=== PATIENT | male | born 1975 | race Caucasian/White ===

== ENCOUNTER 2023-06-05 13:52 | Outpatient (REF) | payer MEDICAID, SELFPAY ==
[2023-06-05 17:23] LABS: MANUAL DIFF FLAG NO
[2023-06-05 17:31] LABS: Basophils Percent Auto 0.8 % (0-2); Eosinophils Absolute Auto 0.2 X10*3/uL (0.0-0.4); Eosinophils Percent Auto 3.8 % (0-4); Hematocrit 44.8 % (42.0-52.0); Hemoglobin 14.7 g/dl (14.0-18.0); Imm Gran Abs Auto 0.01 X10*3/uL (0.00-0.03); Imm Gran Pct Auto 0.2 % (0.0-0.4); Lymphocytes Absolute Auto 1.8 X10*3/uL (1.2-4.9); Lymphocytes Percent Auto 35.4 % (20-40); Mean Corpuscular HGB Conc 32.8 g/dl (31.0-36.0); Mean Corpuscular Hemoglobin 30.5 pg (27.0-33.0); Mean Corpuscular Volume 92.9 fL (80.0-98.0); Mean Platelet Volume 9.7 fL (9.4-12.4); Monocytes Absolute Auto 0.5 X10*3/uL (0.1-1.2); Monocytes Percent Auto 9.5 % (2-11); Neutrophils Absolute Auto 2.6 x10*3/uL (2.0-8.3); Neutrophils Percent Auto 50.3 % (45-73); Platelet Count 273 X10*3/uL (160-400); Red Blood Count 4.82 X10*6/uL (4.60-5.80); Red Cell Distribution Width 11.9 % (11.0-16.0); White Blood Count 5.1 X10*3/uL (4.8-10.8)
[2023-06-05 17:43] LABS: Alanine Aminotransferase 23 U/L (0-40); Albumin Level 4.3 g/dL (3.5-5.0); Alkaline Phosphatase 77 U/L (39-117); Anion Gap 15 (12-20); Aspartate Amino Transferase 20 U/L (5-37); Bilirubin Total 0.6 mg/dL (0.0-1.0); Blood Urea Nitrogen 18 mg/dL (9-16); Calcium 9.2 mg/dL (8.4-10.2); Carbon Dioxide 22 mmol/L (22-29); Chloride 105 mmol/L (96-108); Cholesterol 219 mg/dL (<200); Estimated Glomerular Filt Rate > 60; Glucose Random 103 mg/dL (60-115); HDL Cholesterol 52 mg/dL (>40); LDL Cholesterol Calculated 147 mg/dL (<100); Potassium 3.6 mmol/L (3.3-5.1); Sodium 138 mmol/L (135-145); Total Protein 7.2 g/dL (6.5-8.0); Triglycerides 102 mg/dL (<150)
[2023-06-05 17:55] LABS: Prostate Specific Antigen 1.01 ng/mL (<0.05-4.0)
[2023-06-05 17:58] LABS: TSH reflex Free T4 0.94 uIU/mL (0.32-4.0)
[2023-06-06 05:31] LABS: Estimated Average Glucose 103 mg/dL; Hemoglobin A1c % 5.2 % (<6.0)
== END 2023-06-05 13:53 | disposition home or self-care (01) ==
LOC: HO.CHCLDS 13:52
PROVIDERS: Visit Provider Family Medicine
DX: E66.09 Other obesity due to excess calories (principal); Z68.31 Body mass index [BMI] 31.0-31.9, adult
CPT/HCPCS: 36415; 80053; 80061; 83036; 84153; 84443; 85025

== ENCOUNTER 2023-11-26 09:49 | Outpatient (AMB) | payer MEDICAID, SELFPAY ==
--- NOTE | 2023-11-26 09:53 | MHC.OFFVIS ---
Intake Vital Signs 11/26/23 10:00 Height 5 ft 10 in Weight 230 lb BMI 33.0 BP 130/74 Blood Pressure Location Lt brachial Position Sitting Pulse 65 Intake Visit Reasons: Colonoscopy Screening Intake Note: Patient new consult for 1st pre colonoscopy screening. Patient cc: acid reflex with burning sensation, hemorrhoids, and also patient is having a umbilical lump/hernia ?? denies any other GI issues. Densitometer Reader Required: No Accompanied by: Self / Same As Patient Allergies codeine Allergy (Intermediate, Verified 11/26/23 09:53) Unknown Medication List - Last Reconciled 11/26/23 by Brianne Rincon PA-C No Known Home Meds HPI HPI Comments History of Present Illness Details A 48 y/o male with alternating stool pattern due to his work schedule- he is referred for index screening colonoscopy. He works nights-has difficulty -with his diet-feels it very demanding No cardiac or respiratory issues No N/V/D abdominal pain- fever or chills PFSH Family History (Updated 11/26/23 @ 10:25 by Brianne Rincon PA-C) Unknown No family history of colorectal cancer Social History Household Members: Family Alcohol intake: current Alcohol intake frequency: 3 or more drinks per day Patient Tobacco Use Status: Never used Tobacco Review of Systems Const All systems reviewed & are unremarkable except as noted in HPI and below Card Denies chest pain and Denies dyspnea Resp Denies dyspnea GI Denies abdominal pain, Denies change in bowel habits, Denies nausea and Denies vomiting Psych Reports abnormal sleep pattern Physical Exam Vital Signs: Last Vital Signs Pulse 65 11/26/23 10:00 BP 130/74 11/26/23 10:00 BMI result Body Mass Index 33.0 Const General: cooperative, healthy appearing and comfortable Orientation/consciousness: patient oriented x3 Limitations: no limitations Resp Effort & Inspection: normal respiratory effort and able to speak in complete sentences Auscultation: clear to auscultation bilaterally, no rales, no rhonchi and no wheezes Cardio Rate: regular rate Rhythm: regular rhythm Heart sounds: S1 normal heart sound present and S2 normal heart sound present GI Palpation (GI): Soft to palpation and nontender Auscultation: normal bowel sounds Skin General skin exam: no rashes or lesions noted Neuro General: patient oriented x3 Extrem General: Yes full ROM Psych Appearance: well kempt Mental Status: mental status grossly normal Speech and movement: Clear speech present Affect: Labile affect present Thought process: Normal thought process present Thought content: Normal thought content present Insight: Fair insight present (Psych) Assessment & Plan Assessment & Plan (1) Encounter for screening colonoscopy: Comment: disc procedure- rare risks-need escort- prep Code(s): Z12.11 - Encounter for screening for malignant neoplasm of colon Plan index screening colonoscopy MG prep Orders: Orders Colonoscopy - GI Use Only Today Z12.11 - Encounter for screening for malignant neoplasm of colon Medications: New bisacodyl (Dulcolax (bisacodyl)) Day before procedure @ 12 noon Take 4 tablets by mouth followed by large glass of water 20 mg (4 x 5 mg) PO ONCE PRN 4 tabs 0RF colonoscopy prep 1 day Z12.11 - Encounter for screening for malignant neoplasm of colon polyethylene glycol 3350 (Miralax) Take as directed by mouth the day before your procedure. 238 grams PO ONCE PRN 238 grams 0RF laxative effect 1 day Patient Instructions: index screening colonoscopy MG prep, reviewed- lit given Maintain high-fiber diet Call with concerns Coding Level of Care Code New Pt Level 3 (97768) Diagnoses Encounter for screening colonoscopy Z12.11 Time Spent (min) 30
[2023-11-26 10:00] VITALS: BP 130/74; PULSE 65; BMI 33.0
== END 2023-11-26 11:08 | disposition home or self-care (01) ==
PROVIDERS: PCP Family Medicine; Visit Provider Physician Assistant
DX: Z12.11 Encounter for screening for malignant neoplasm of colon (principal); Z01.818 Encounter for other preprocedural examination
CPT/HCPCS: 99203

== ENCOUNTER → 2023-11-26 09:49 | Outpatient (BNVA) | payer MEDICAID, SELFPAY | PROVIDERS: PCP Family Medicine; Visit Provider Physician Assistant | DX: Z12.11 Encounter for screening for malignant neoplasm of colon (principal) | CPT/HCPCS: 99212 ==

== ENCOUNTER 2024-04-01 17:46 | Outpatient (REF) | payer MEDICAID, SELFPAY | END 2024-04-01 17:47 | disposition home or self-care (01) | LOC: HO.HHCLNP 17:46 | PROVIDERS: Visit Provider Internal Medicine | DX: L98.491 Non-pressure chronic ulcer of skin of other sites limited to breakdown of skin (principal) | CPT/HCPCS: 36415; 87255 ==

== ENCOUNTER 2024-04-30 09:26 | Day surgery (SDC) | payer OTHER, SELFPAY ==
[2024-04-30 10:08] VITALS: BMI 31.8
[2024-04-30] MEDS: Lactated Ringers 1,000 ML 80 ML IVCONT (10:17)
[2024-04-30 10:27] VITALS: BP 154/90; PULSE 66; RESP 18; TEMP 36.7; O2SAT 96
--- NOTE | 2024-04-30 10:37 | P.CONAN_ITS ---
HPI - Anesthesia Eval Consult details Narrative: colon screen [facility] Active Problems Active Problems: All Active Problems Encounter for screening colonoscopy (Acute) Past Medical History Medical History No pertinent past medical history Family History Family History Unknown No family history of colorectal cancer Family history of problems with anesthesia: No Surgical History Surgical History Hx of wisdom tooth extraction History of lithotripsy History of Problems with Anesthesia: No Social History Social History Household Members: Family Alcohol intake: current Alcohol intake frequency: 3 or more drinks per day Patient Tobacco Use Status: Never used Tobacco Advance Directives: No Advance Directives Information Provided: Yes Meds Allergies Allergy/AdvReac Type Severity Reaction Status Date / Time codeine Allergy Intermediate Unknown Verified 04/30/24 09:58 Active Medications: Current Medications Lactated Ringer's (Lr) 1,000 mls @ 80 mls/hr IVCONT .[id number] WILLIAN Last Admin: 04/30/24 10:17 Dose: 80 mls/hr Home Medications ?Medication ?Instructions ?Recorded ?Confirmed ?Last Taken ?Type No Known Home Meds 04/30/24 04/30/24 Unknown History Exam Height,Weight and Vital Signs: Height 5 ft 10 in Weight 100.607 kg Last Vital Signs Temp 98.1 F 04/30/24 10:27 Pulse 66 04/30/24 10:27 Resp 18 04/30/24 10:27 BP 154/90 H 04/30/24 10:27 Pulse Ox 96 04/30/24 10:27 O2 Del Method Room Air 04/30/24 10:27 Airway Mallampati Class: II TM Dist: >3cm Neck ROM: Full Heart: rrr Lungs: cta Assessment and Plan Assessment Anesthesia Assessment: Anesthesia Plan Discussed Final Anesthetic Review Family History of Problems with Anesthesia: No History of Problems with Anesthesia: No NPO: Yes ASA Class: I Final Preanesthetic Review: No Changes in Pt Med Stat, Meds/Allgs Chart Reviewed, Consent Obtained/Reviewed and Anes Risks/Benef Reviewed Patient Risk: Low Procedure Risk: Low Anesthetic Plan Anesthetic Plan: MAC: Disposition: Standard PACU
--- NOTE | 2024-04-30 10:37 | MHC.SHP ---
Pre-Procedural Eval Section A - 24 Hr Update-Section A only Date of Service: 04/30/24 The patient is an INPATIENT: No The patient has been examined within 24 hours of the surgical procedure. The History & Physical has been completed within 30 days and I have reviewed it.: No Section B - Complete if H&P > 30 days Chief Complaint: Colon cancer screening Relevant Family History (Specify if Yes): No Relevant Social History: None Present Medications: see Short Stay Collaborative assessment Medical History: No relevant PMH History of Previous Operations: Relevant previous surgery/procedure and date(s) (wisdom tooth) Allergies: Allergies Allergy/AdvReac Type Severity Reaction Status Date / Time codeine Allergy Intermediate Unknown Verified 04/30/24 09:58 Review of Systems Sugical H&P ROS: Negative: Constitution, Cardiovascular, Respiratory and Gastrointestinal Exam Surgical H&P Exam: Normal: Heart, Normal: Lungs, Normal: Extremities and Normal: Abdomen Plan Diagnosis/Plan: Unchanged I have reviewed the history and physical and performed a pertinent physical examination on my patient. No changes have occurred unless specified. Time Spent With Patient Time: Total time managing care of this patient today ____ minutes.
--- NOTE | 2024-04-30 11:00 | HO.ANESPROP2 ---
[facility] Active Problems Active Problems: All Active Problems Encounter for screening colonoscopy (Acute) Past Medical History Medical History No pertinent past medical history Family History Family History Unknown No family history of colorectal cancer Family history of problems with anesthesia: No Surgical History Surgical History Hx of wisdom tooth extraction History of lithotripsy History of Problems with Anesthesia: No Social History Social History Household Members: Family Are you a primary managed care provider to a significant other at home: No Do you presently have visiting nurse or other home services: No Alcohol intake: current Alcohol intake frequency: 3 or more drinks per day Patient Tobacco Use Status: Never used Tobacco Have you been hit, kicked, punched, or otherwise hurt by someone within the past year? If so, by whom?: No Are you DNR?: No Advance Directives: No Advance Directives Information Provided: Yes Recently lost weight without trying: No Nutrition Risks: No Nutritional Risk Meds Allergies Allergy/AdvReac Type Severity Reaction Status Date / Time codeine Allergy Intermediate Unknown Verified 04/30/24 09:58 Active Medications: Current Medications Lactated Ringer's (Lr) 1,000 mls @ 80 mls/hr IVCONT .[id number] WILLIAN Last Admin: 04/30/24 10:17 Dose: 80 mls/hr Home Medications ?Medication ?Instructions ?Recorded ?Confirmed ?Last Taken ?Type No Known Home Meds 04/30/24 04/30/24 Unknown History Exam Height,Weight and Vital Signs: Height 5 ft 10 in Weight 100.607 kg Last Vital Signs Temp 98.1 F 04/30/24 10:27 Pulse 66 04/30/24 10:27 Resp 18 04/30/24 10:27 BP 154/90 H 04/30/24 10:27 Pulse Ox 96 04/30/24 10:27 O2 Del Method Room Air 04/30/24 10:27 Airway Mallampati Class: II TM Dist: >3cm Neck ROM: Full Assessment and Plan Assessment Anesthesia Assessment: Anesthesia Plan Discussed and Chart Reviewed Final Anesthetic Review Family History of Problems with Anesthesia: No History of Problems with Anesthesia: No NPO: Yes ASA Class: II Final Preanesthetic Review: No Changes in Pt Med Stat, Meds/Allgs Chart Reviewed, Consent Obtained/Reviewed and Anes Risks/Benef Reviewed Patient Risk: Low Procedure Risk: Low Anesthetic Plan Disposition: Standard PACU
--- NOTE | 2024-04-30 11:36 | HO.OPN-COLON ---
Colonoscopy Operative Note Operative Note Date of Service: 04/30/24 Narrative: COLONOSCOPY TILL CECUM WITH BIOPSIES Pre-op diagnosis: Colon cancer screening (First colonoscopy), IBS. Post-op diagnosis:? Diverticulosis Endoscopist:? Gisel Lemon MD Anesthesia:?MAC Consent: Indications for the procedure and potential complications of bleeding, perforation, reaction to medications and missed diagnosis were discussed with the patient and informed consent was obtained. Instrument: Olympus PCF H 190 L variable stiffness pediatric colonoscope Monitoring: Vital signs and clinical assessment, intermittent blood pressure monitoring, continuous EKG monitoring, Pulse oximetry and Carbon Dioxide monitoring were done throughout the procedure. Please see anesthesia flowsheet. Colon withdrawl time was 14 minutes. Procedure: The patient was placed in the left lateral decubitis position and pre-procedure medications were administered. After a digital rectal examination of the ano-rectum, the video colonoscope was inserted into the rectum and advanced through the colon to the cecum. The colonoscope was slowly withdrawn in a retrograde panoramic fashion and the colon mucosa was carefully examined including a retroflexed view of the rectum. Findings and interventions are described below. Procedure Difficulty: without difficulty Findings: Terminal Ileum: Not evaluated Cecum: Normal Ascending Colon: Normal Transverse Colon: Normal Descending Colon: Moderate diverticulosis Sigmoid Colon: Moderate diverticulosis Rectum: Normal Ano-rectum: Normal Colon preparation: Excellent, after some irrigation. [place] Bowel Preparation Scale Right colon; 3 Transverse colon: 3 Left colon; 3 (0 = Unprepared colon segment with mucosa not seen due to solid stool that cannot be cleared. 1 = Portion of mucosa of the colon segment seen, but other areas of the colon segment not well seen due to staining, residual stool and/or opaque liquid. 2 = Minor amount of residual staining, small fragments of stool and/or opaque liquid, but mucosa of colon segment seen well. 3 = Entire mucosa of colon segment seen well with no residual staining, small fragments of stool or opaque liquid) Impression and Post Procedure Diagnosis: Colonoscopy Findings: No polyps were detected Random biopsies were obtained from the right and left colon to check for microscopic colitis. Moderate diverticulosis seen in the left colon Plan: I will send a letter with biopsy results. Pt has a FU appointment on 07/29/24 with ISAURA Horvath, Repeat Colonoscopy in 10 year if colon biopsies are normal. Above findings were reviewed with the patient and relevant handouts were given and the discharge area.
[2024-04-30 11:40] VITALS: BP 140/91; PULSE 70; RESP 17; TEMP 36.8; O2SAT 98
[2024-04-30 11:55] VITALS: BP 135/90; PULSE 62; RESP 18; TEMP 36.9; O2SAT 99
== END 2024-04-30 12:30 | disposition home or self-care (01) ==
PROVIDERS: PCP Family Medicine; Visit Provider Internal Medicine Gastroenterology
PROC: 0DJD8ZZ Inspection of Lower Intestinal Tract, Via Natural or Artificial Opening Endoscopic (ICD-10-PCS; CPT 45378; principal; 2024-04-30 11:00)
DX: Z12.11 Encounter for screening for malignant neoplasm of colon (principal); K57.30 Diverticulosis of large intestine without perforation or abscess without bleeding; K58.9 Irritable bowel syndrome, unspecified; K21.9 Gastro-esophageal reflux disease without esophagitis; Z88.5 Allergy status to narcotic agent; Z87.442 Personal history of urinary calculi
CPT/HCPCS: 45380; 88305; J2704

== ENCOUNTER → 2024-04-30 09:26 | Outpatient (BNV) | payer OTHER, SELFPAY | PROVIDERS: PCP Family Medicine; Visit Provider Internal Medicine Gastroenterology | DX: Z12.11 Encounter for screening for malignant neoplasm of colon (principal); K57.90 Diverticulosis of intestine, part unspecified, without perforation or abscess without bleeding | CPT/HCPCS: 45380 ==

== ENCOUNTER 2024-09-21 11:32 | Outpatient (REF) | payer OTHER, SELFPAY ==
--- NOTE | ~2024-09-21 | XR_ITS ---
EXAMINATION: XR CHEST CLINICAL INFORMATION: chornic cough COMPARISON: None available. TECHNIQUE: 2 views of the chest were obtained. FINDINGS: No significant abnormality is noted involving the heart, lungs, mediastinum, bony thorax or soft tissues. XR/XR chest 2V IMPRESSION: Unremarkable chest exam. Electronically signed by: Joseph García MD 09/21/2024 12:06 PM [facility]
--- OUTSIDE RECORDS SUMMARY | 2024-09-21 12:48 | XMS_ITS | Encounter Summary ---
Author Organization [employer] Address [address] [place] [address] Care Team Providers Care Adjunct Professor Of Law Name Role Phone Kathleen Bustamante MD Primary Care Provider [phone] Encounter Details Date Type Department Care Team ([facility] Contact Info) Description 08/30/2024 1:00 PM EST Office Visit [facility] [address], [place] [phone] Kathleen Bustamante MD [address] [place], [place] [id number] Primary hypertension (Primary Dx); Diverticulosis; Screening due; Dietary counseling; Exercise counseling; Class 1 obesity with serious comorbidity and body mass index (BMI) of 34.0 to 34.9 in adult, unspecified obesity type; Insomnia, unspecified type Social History Tobacco Use Types Packs/Day Years Used Date Smoking Tobacco: Never Passive Smoke Exposure: Never Smokeless Tobacco: Never Alcohol Use Standard Drinks/Week Comments Never 0 (1 standard drink = 0.6 oz pur e alcohol) Depression Answer Date Recorded Patient Health Questionnaire-9 Score 8 05/22/2023 Housing Stability Answer Date Recorded What is your housing situation today? I have mandyrk lawson 07/02/[address] you li ve. Do you have problems with any of the following? None of the above 07/02/2023 Food Insecurity Answer Date Recorded Within the past 12 months, y ou worried that your food would run out before you got money to buy more: Never True 07/02/2023 Within the past 12 months,th e food you bought just didn't last and you didn't have enough money to get more: Never True 03/2023 Transportation Answer Date Recorded In the past 12 months, has l ack of transportation kept you from medical appts, meetings, work or from getting things needed for daily living? No 07/02/2023 Utilities Answer Date Recorded In the past 12 months, has t he electric, gas, oil or water company threatened to shut off services in your home? No 07/02/2023 Depression Answer Date Recorded Patient Health Questionnaire-2 Score 2 05/22/2023 Sex and Gender Information Value Date Recorded Sex Assigned at Male 04/02/2023 8:32 AM EDT Legal Sex Male 3:15 PM EST Gender Identity Male 04/02/2023 8:32 AM EDT Sexual Orientation Don't know 04/02/2023 8: 32 AM EDT documented as of this encounter Last Filed Vital Signs Vital Sign Reading Time Taken Comments Blood Pressure 148/88 08/30/2024 1:17 PM EST Pulse 76 08/30/2024 1:10 PM EST Temperature 36.3 ??C (97.4 ??F) 08/30/2024 1:10 PM ES T Respiratory Rate 20 08/30/2024 1:10 PM EST Oxygen Saturation 98% 08/30/2024 1:10 PM EST Inhaled Oxygen Concentration - - Weight 107 kg (236 lb 12.8 oz) 08/30/2024 1:10 P M EST Height 175.3 cm (5' 9 ) 08/30/2024 1:10 PM EST Body Mass Index 34.97 08/30/2024 1:10 PM EST documented in this encounter Patient Instructions * Patient Instructions* Kathleen Bustamante MD - 08/30/2024 1:00 PM EST Counseling Center List [facility] Intake: [phone] Crisis: [phone] [facility]: [phone] [facility] Address: [address] [place], [place] [facility] Address: [address] [place] [address] [facility] Address: [address] [place], [place] [facility] Address: [address] [place] [address], Building [address] [place] [address] [facility] Address: [address], [place], [place] [facility] Address: [address] [place], [place] [facility] Address: [address] [place], [place] [facility] Address: [address] [place], [place] Service Net Address: [address] [place] [address] documented in this encounter Progress Notes * Kathleen Bustamante MD - 08/30/2024 1:00 PM EST Subjective Patient ID: Tenzin Davis is a 49 y.o. male who presents for HTN. - Pt completed colonoscopy, due in 10 years. HTN: Pt has been stressed with reduction in hours at work. Pt does have BP home kit but does not monitorat home. Pt states he has Hx of being pre-hypertensive and has Family Hx of HTN. Sleep Disturbance: Pt is having difficulty sleeping. He has no issue falling asleep but has difficulty staying asleep.He admits drinking alcohol helps with sleep but increased acid reflux Sx. He has also had increasedanxiety. Concerns: Pt complains of abdominal pain and gas that happens frequently. Pt admits stressors and eating habits are contributing to Sx. Pt is also feeling arthritic pain particularly after working. He states joint pain is throughout the body. Review of Systems Constitutional: Negative for appetite change, fatigue and fever. HENT: Negative for congestion, postnasal drip and rhinorrhea. Eyes: Negative for discharge and redness. Respiratory: Negative for apnea, cough, chest tightness and shortness of breath. Cardiovascular: Negative for chest pain. Gastrointestinal: Positive for abdominal pain. Gas Endocrine: Negative for polyphagia. Genitourinary: Negative for difficulty urinating, dysuria and urgency. Musculoskeletal: Positive for arthralgias. Neurological: Negative for dizziness, light-headedness, numbness and headaches. Hematological: Negative for adenopathy. Does not bruise/bleed easily. Psychiatric/Behavioral: The patient is nervous/anxious. Objective Visit Vitals BP (!) 148/88 (BP Location: Left arm, Patient Position: Sitting, BP Cuff Size: Large adult) Pulse 76 Temp 97.4 ??F (36.3 ??C) (Oral) Resp 20 Ht 5' 9 (1.753 m) Wt 236 lb 12.8 oz (107 kg) SpO2 98% BMI 34.97 kg/m?? Smoking Status Never BSA 2.28 m?? Physical Exam Constitutional: General: He is not in acute distress. Appearance: He is not ill-appearing. HENT: Head: Normocephalic and atraumatic. Nose: No congestion. Pulmonary: Effort: Pulmonary effort is normal. No respiratory distress. Breath sounds: Normal breath sounds. Musculoskeletal: Cervical back: Normal range of motion. Neurological: General: No focal deficit present. Mental Status: He is alert. Psychiatric: Mood and Affect: Mood normal. Assessment/Plan Problem List Items Addressed This Visit Nervous Insomnia Issues with sleep maintenance, will start on trazodone. Relevant Medications Doxepin (Sinequan) 10 MG Capsule Circulatory Primary hypertension - Primary BP is uncontrolled. Recheck is 148/88. Begin Amlodipine 5 MG and follow up in 3 weeks with nurse for recheck. Monitor BP at home. Ordering lab work for further evaluation. Relevant Medications Amlodipine (Norvasc) 5 MG tablet Relevant Orders CBC auto differential Comprehensive Metabolic Panel Lipid Panel, Standard TSH W/Reflex to FT4 Digestive Diverticulosis Other Visit Diagnoses Screening due Relevant Orders Hepatitis C Antibody with Reflex to HCV, RNA, Quantitative, Real-Time PCR HIV-1/2 Antigen and Antibodies, Fourth Generation, with Reflexes Dietary counseling Exercise counseling Class 1 obesity with serious comorbidity and body mass index (BMI) of 34.0 to 34.9 in adult, unspecified obesity type Advised to follow up with and gave information for local providers. Scribe Attestation: By signing my name below, Shayy Hickman, attest that this documentation has been prepared under the direction of Kathleen Bustamante MD. documented in this encounter Miscellaneous Notes * Assessment & Plan Note - Shayy Hickman - 08/30/2024 1:42 PM ESTAssociated Problem(s): Primary hypertension BP is uncontrolled. Recheck is 148/88. Begin Amlodipine 5 MG and follow up in 3 weeks with nurse for recheck. Monitor BP at home. Ordering lab work for further evaluation. Relevant Medications Amlodipine (Norvasc) 5 MG tablet * Assessment & Plan Note - Kathleen Bustamante MD - 08/30/2024 1:22 PM EST Associated Problem(s): Insomnia Issues with sleep maintenance, will start on trazodone. Relevant Medications Doxepin (Sinequan) 10 MG Capsule documented in this encounter Plan of Treatment Scheduled Orders Name Type Priority Associated Diagnoses Orde r Schedule Hepatitis C Antibody with Reflex to HCV, RNA, Quantitative, Real-Time PCR Lab Routine Screening due Expected: 08/30/2024 (Approximate), Expires: 08/30/2025 HIV-1/2 Antigen and Antibodies, Fourth Generation, with Reflexes Lab Routine Screening due Expected: 08/30/2024 (Approximate), Expires: 08/30/2025 CBC auto differential Lab Routine Primary hypertension Expected: 08/30/2024 (Approximate), Expires: 08/30/2025 Comprehensive Metabolic Panel Lab Routine Primary hypertension Expected: 08/30/2024 (Approximate), Expires: 08/30/2025 Lipid Panel, Standard Lab Routine Primary hypertension Expected: 08/30/2024 (Approximate), Expires: 08/30/2025 TSH W/Reflex to FT4 Lab Routine Primary hypertension Expected: 08/30/2024 (Approximate), Expires: 08/30/2025 documented as of this encounter Visit Diagnoses Diagnosis Primary hypertension- Primary Unspecified essential hypertension Diverticulosis Diverticulosis of colon (without mention of hemorrhage) Screening due Dietary counseling Dietary surveillance and counseling Exercise counseling Class 1 obesity with serious comorbidity and body mass index (BMI) of 34.0 to 34.9 in adult, unspecified obesity type Insomnia, unspecified type documented in this encounter Additional Health Concerns Assessment Noted Time PHQ-9 Depression Total Score: 8 05/22/20 23 11:01 AM EDT documented as of this encounter Care Teams Adjunct Professor Of Law Relationship Specialty Start Date End Date Kathleen Bustamante MD [address] [place] [address] PCP - General Family Medicine 05/22/23 documented as of this encounter
--- OUTSIDE RECORDS SUMMARY | 2024-09-21 12:48 | XMS_ITS | Encounter Summary ---
Author Organization [employer] Address [address] [facility] [address] [address] 7t [place] [address] Care Team Providers Care Reading Teacher Name Role Phone Kathleen Bustamante MD Primary Care Provider [phone] Encounter Details Date Type Department Care Team ([facility] st Contact Info) Description 09/21/2024 11:20 AM EST Office Visit [facility] [address] [place] [address] [phone] Rosa M Rincon MD [address] [place] [address] [phone] Persistent cough for 3 weeks or longer (Primary Dx); Primary hypertension Social History Tobacco Use Types Packs/Day Years Used Date Smoking Tobacco: Never Passive Smoke Exposure: Never Smokeless Tobacco: Never Alcohol Use Standard Drinks/Week Comments Never 0 (1 standard drink = 0.6 oz pur e alcohol) Depression Answer Date Recorded Patient Health Questionnaire-9 Score 8 05/22/2023 Housing Stability Answer Date Recorded What is your housing situation today? I have mandy lawson 07/02/[address] you [...] Sign Reading Time Taken Comments Blood Pressure 160/100 09/21/2024 11:26 AM EST Pulse - - Temperature - - Respiratory Rate - - Oxygen Saturation - - Inhaled Oxygen Concentration - - Weight - - Height - - Body Mass Index - - documented in this encounter Progress Notes * Jeri Amado - 09/21/2024 11:20 AM EST Subjective History was provided by the patient. Tenzin Davis is a 49 y.o. male who presents for evaluation of follow up on a URI. Seen in [facility] [place] on 09/07/24 initially for cough. Swabs negative, Son had tested positive for COVID. Seen again in [facility] [place] on 09/14/24(7 days ago) for cough and exposure to COVID by his children. Tested negatvie for COVID, but positive for Flu B. Prescribed azithromycin, ipratropium, Tessalon Perles and tamiflu. Pt reports since then symptoms include cough with clear sputum, but reports it has been improving. Says he just needs another note for work. Pt reports he did not complete his abx because after he took the first two doses he got nauseous and vomited. Associated negative symptoms include fever, shortness of breath, congestion, sore throat, and chest pain. BP initially elevated in clinic. Pt reported he dd not take his medications this morning. Objective Vitals: 09/21/24 1126 BP: (!) 160/100 BP Location: Left arm Patient Position: Sitting BP Cuff Size: Large adult Physical Exam Constitutional: Appearance: Normal appearance. Cardiovascular: Rate and Rhythm: Normal rate and regular rhythm. Heart sounds: Normal heart sounds. Pulmonary: Effort: Pulmonary effort is normal. No respiratory distress. Breath sounds: Normal breath sounds. No decreased breath sounds or wheezing. Comments: Coughing intermittently. Musculoskeletal: Cervical back: Normal range of motion and neck supple. Lymphadenopathy: Cervical: No cervical adenopathy. Neurological: Mental Status: He is oriented to person, place, and time. No visits with results within 2 Day(s) from this visit. Latest known visit with results is: Office Visit on 09/14/2024 Component Date Value Ref Range Status Influenza A 09/14/2024 Negative Negative, Indeterminate Final Influenza B 09/14/2024 Positive (A) Negative, Indeterminate Final Rapid COVID Ag 09/14/2024 Negative Final Problem List Items Addressed This Visit Persistent cough for 3 weeks or longer - Primary Initial symptoms with main concern of cough started around 09/07/24, had negative swabs at the time.Second evaluation for persisting/worsening symptoms on 09/14/24 where pt tested positive for influenza. Today pt resents for prolonged/lingering cough with clear sputum, but notes otherwise symptoms have improved/resolved. -ordered CXR 09/21/24 Relevant Orders XR Chest 2 Views Primary hypertension BP slightly elevated, not controlled. Strongly encouraged patient to take his medications. -No evidence of acute disease process. Suspect prolonged cough after recent influenza. Symptoms mild and improving. -Ordered XR. -ER precautions discussed. -Seek medical attention for worsening symptoms. I, Jeri Fischer, am serving as a scribe to document services personally performed by Dr. Ervin, based on the patient's response to questions by provider and providers statements to me. documented in this encounter Miscellaneous Notes * Assessment & Plan Note - Jeri Fischer - 09/21/2024 11:21 AM ESTAssociated Problem(s): Primary hypertension BP slightly elevated, not controlled. Strongly encouraged patient to take his medications. * Assessment & Plan Note - Jeri Fischer - 09/21/2024 11:18 AM ESTAssociated Problem(s): Persistent cough for 3 weeks or longer Initial symptoms with main concern of cough started around 09/07/24, had negative swabs at the time.Second evaluation for persisting/worsening symptoms on 09/14/24 where pt tested positive for influenza. Today pt resents for prolonged/lingering cough with clear sputum, but notes otherwise symptoms have improved/resolved. -ordered CXR 09/21/24 documented in this encounter Plan of Treatment Not on file documented as of this encounter Procedures Procedure Name Priority Date/Time Associated Diagnosis Comments XR CHEST 2 VIEWS Routine 09/21/2024 11:3 3 AM EST Persistent cough for 3 weeks or longer documented in this encounter Results * XR Chest 2 Views (09/21/2024 11:33 AM EST) Anatomical Region Laterality Modality Chest Radiographic Malinda ging 09/21/2024 11:3 3 AM EST Narrative 09/21/2024 12:08 PM EST ?[facility] ?[address] ?[place] [address] ?XRay Report ? Signed ? Patient: Tenzin Davis ?MR#: [id number] ?? [id number] ? : 1975 ?Acct:[id number] ? Age/Sex: 49 / M ?ADM Date: 09/21/24 ? Loc: HO.HHCX ? Attending Dr: Rosa M Rincon MD ? Ordering Physician: Rosa M Rincon MD ?? Date of Service: 09/21/24 ?? Procedure(s): XR chest 2V ?? Accession Number(s): [id number] ? cc: Rosa M Rincon MD ? EXAMINATION: ?? XR CHEST ? CLINICAL INFORMATION: ?? chornic cough ? COMPARISON: ?? None available. ? TECHNIQUE: ?? 2 views of the chest were obtained. ? FINDINGS: ?? No significant abnormality is noted involving the heart, lungs, ?? mediastinum, bony thorax or soft tissues. ? XR/XR chest 2V ?? IMPRESSION: ?? Unremarkable chest exam. ? Electronically signed by: ??Joseph García MD ??09/21/2024 12:06 PM EST RP ? Dictated By: ?Joseph García MD ? Signed By: ?<Electronically signed by Joseph García MD in OV> ?09/21/24 1206 ? DD/ 1133 ? TD/TT: 09/21/24 1155 ? Shore Worker: MSM ? Procedure Note Dontamra, Image - 09/21/2024 [facility] [address] [place] [address] XRay Report Signed Patient: Becky Davis#: [id number] : 1975Acct:[id number] Age/Sex: 49 / MADM Date: 09/21/24 Loc: HO.HHCX Attending Dr: Rosa M Rincon MD Ordering Physician: Rsoa M Rincon MD Date of Service: 09/21/24 Procedure(s): XR chest 2V Accession Number(s): [id number] cc: Rosa M Rincon MD EXAMINATION: XR CHEST CLINICAL INFORMATION: chornic cough COMPARISON: None available. TECHNIQUE: 2 views of the chest were obtained. FINDINGS: No significant abnormality is noted involving the heart, lungs, mediastinum, bony thorax or soft tissues. XR/XR chest 2V IMPRESSION: Unremarkable chest exam. Electronically signed by: Joseph García MD 09/21/2024 12:06 PM [facility] Dictated By: Joseph García MD Signed By: <Electronically signed by Joseph García MD in OV> 09/21/24 1206 DD/ 1133 TD/TT: 09/21/24 1155 Shore Worker: MSM Rosa M Rincon MD IMG XR PROCEDURES Final Re sult documented in this encounter Visit Diagnoses Diagnosis Persistent cough for 3 weeks or longer- Primary Primary hypertension Unspecified essential hypertension documented in this encounter Additional Health Concerns Assessment Noted Time PHQ-9 Depression Total Score: 8 05/22/20 23 11:01 AM EDT documented as of this encounter Care Teams Reading Teacher Relationship Specialty Start Date End Date Kathleen Bustamante MD [address] [place] [address] PCP - General Family Medicine 05/22/23 documented as of this encounter
--- OUTSIDE RECORDS SUMMARY | 2024-09-21 12:48 | XMS_ITS | Encounter Summary ---
Author Organization [employer] Address [address] [facility] 7[address] [place] [address] Care Team Providers Care Mallet And Die Cutter Name Role Phone Kathleen Bustamante MD Primary Care Provider [phone] Encounter Details Date Type Department Care Team (Latest Contact Info) Description 08/30/2024 Travel Social History Tobacco Use Types Packs/Day Years [...] AM EDT documented as of this encounter Plan of Treatment Not on file documented as of this encounter Visit Diagnoses Not on filedocumented in this encounter Additional Health Concerns Assessment Noted Time PHQ-9 Depression Total Score: 8 05/22/20 11:01 AM EDT documented as of this encounter Care Teams Mallet And Die Cutter Relationship Specialty Start Date End Date Kathleen Bustamante MD [address] [place] [address] PCP - General Family Medicine 05/22/23 documented as of this encounter
--- OUTSIDE RECORDS SUMMARY | 2024-09-21 12:48 | XMS_ITS | Encounter Summary ---
Author Organization [employer] Address [address] [facility] [address]t [place] [address] Care Team Providers Care Transmission Superintendent Name Role Phone Kathleen Bustamante MD Primary Care Provider [phone] Reason for Visit * Reason Comments Cough Encounter Details Date Type Department Care Team ([facility] st Contact Info) Description 09/14/2024 9:40 AM EST Office Visit [facility] [address] [place] [address] [phone] Rosa M Rincon MD [address] [place], [place] [phone] Cough, unspecified type (Primary Dx); Influenza B Social History Tobacco Use Types Packs/Day Years Used Date Smoking Tobacco: Never Passive Smoke Exposure: Never Smokeless Tobacco: Never Tobacco Cessation:Counseling Given: Not Answered Alcohol Use Standard Drinks/Week Comments Never 0 [...] Sign Reading Time Taken Comments Blood Pressure 146/95 09/14/2024 9:00 AM EST Pulse 89 09/14/2024 9:00 AM EST Temperature 37.3 ??C (99.1 ??F) 09/14/2024 9:00 AM ES T Respiratory Rate 19 09/14/2024 9:00 AM EST Oxygen Saturation 94% 09/14/2024 9:00 AM EST Inhaled Oxygen Concentration - - Weight 104 kg (229 lb 3.2 oz) 09/14/2024 9:00 AM EST Height 175.3 cm (5' 9 ) 09/14/2024 9:00 AM EST Body Mass Index 33.85 09/14/2024 9:00 AM EST documented in this encounter Progress Notes * Izzy Medrano MA - 09/14/2024 9:40 AM EST Subjective History was provided by the patient. Tenzin Davis is a 49 y.o. male who presents for evaluation of symptoms of a URI. Pttested negative for Covid but was exposed to Covid by children. Pt tested positive for Flu A. Symptoms include cough, runny nose, and congestion. Onset of symptoms was 2 weeks ago, gradually worsening since that time. Associated negative symptoms include fever. Evaluation to date: none. Treatment to date: none Objective Vitals: 09/14/24 0900 BP: (!) 146/95 BP Location: Left arm Patient Position: Sitting BP Cuff Size: Large adult Pulse: 89 Resp: 19 Temp: 99.1 ??F (37.3 ??C) TempSrc: Oral SpO2: 94% Weight: 229 lb 3.2 oz (104 kg) Height: 5' 9 (1.753 m) Physical Exam Constitutional: Appearance: Normal appearance. Cardiovascular: Rate and Rhythm: Normal rate and regular rhythm. Heart sounds: Normal heart sounds. Pulmonary: Effort: Pulmonary effort is normal. Breath sounds: Normal breath sounds. Abdominal: General: Abdomen is flat. Palpations: Abdomen is soft. Tenderness: There is no abdominal tenderness. Musculoskeletal: Cervical back: Normal range of motion and neck supple. Lymphadenopathy: Cervical: No cervical adenopathy. Skin: General: Skin is warm and dry. Neurological: Mental Status: Mental status is at baseline. Psychiatric: Behavior: Behavior normal. Office Visit on 09/14/2024 Component Date Value Ref Range Status Influenza A 09/14/2024 Negative Negative, Indeterminate Final Influenza B 09/14/2024 Positive (A) Negative, Indeterminate Final Rapid COVID Ag 09/14/2024 Negative Final Problem List Items Addressed This Visit Cough - Primary - Prescribed azithromycin (Zithromax) 250 MG tablet 09/14/24 - Prescribed ipratropium (Atrovent) 0.06 % nasal spray 09/14/24 - Prescribed benzonatate (Tessalon Perles) 100 MG capsule 09/14/24 - ER precautions discussed. 09/14/24 - Seek medical attention for worsening symptoms. 09/14/24 Relevant Medications azithromycin (Zithromax) 250 MG tablet ipratropium (Atrovent) 0.06 % nasal spray benzonatate (Tessalon Perles) 100 MG capsule Other Relevant Orders Influenza A (ID NOW Rapid Molecular) (Completed) Influenza B (ID NOW Rapid Molecular) (Completed) POCT Rapid COVID Ag (Completed) Influenza B - Prescribed oseltamivir (Tamiflu) 75 MG capsule 09/14/24 - ER precautions discussed. 09/14/24 - Seek medical attention for worsening symptoms. 09/14/24 Relevant Medications oseltamivir (Tamiflu) 75 MG capsule -No evidence of respiratory distress. Symptoms mild. -No evidence of dehydration. -Supportive care advised. -Isolation recommendations discussed. -ER precautions discussed. -Seek medical attention for worsening symptoms. Izzy Crowley, am serving as a scribe to document services personally performed by Dr. Rosa M Rincon, based on the patient's response to questions by provider and providers statements to me. documented in this encounter Miscellaneous Notes * Assessment & Plan Note - Izzy Medrano MA - 09/14/2024 9:56 AM ESTAssociated Problem(s): Cough - Prescribed azithromycin (Zithromax) 250 MG tablet 09/14/24 - Prescribed ipratropium (Atrovent) 0.06 % nasal spray 09/14/24 - Prescribed benzonatate (Tessalon Perles) 100 MG capsule 09/14/24 - ER precautions discussed. 09/14/24 - Seek medical attention for worsening symptoms. 09/14/24 * Assessment & Plan Note - Izzy Medrano MA - 09/14/2024 9:56 AM ESTAssociated Problem(s): Influenza B - Prescribed oseltamivir (Tamiflu) 75 MG capsule 09/14/24 - ER precautions discussed. 09/14/24 - Seek medical attention for worsening symptoms. 09/14/24 documented in this encounter Plan of Treatment Not on file documented as of this encounter Procedures Procedure Name Priority Date/Time Associated Diagnosis Comments POCT INFLUENZA B (ID NOW RAPID MOLECULAR) Routine 09/14/2024 9:49 AM EST Cough, unspecified type POCT INFLUENZA A (ID NOW RAPID MOLECULAR) Routine 09/14/2024 9:49 AM EST Cough, unspecified type POCT RAPID COVID ANTIGEN Routine 09/14/2024 9:49 AM EST Cough, unspecified type documented in this encounter Results * POCT Rapid COVID Ag (09/14/2024 9:49 AM EST) Rapid COVID Ag Negative Swab 09/14/2024 9:49 AM EST Rosa M Rincon MD POINT OF CARE TEST ENTER/E DIT ORDERABLES Final Result * (ABNORMAL) Influenza B (ID NOW Rapid Molecular) (09/14/2024 9:49 AM EST) Influenza B Positive( A) Negative, Indeterminate [facility] Swab 09/14/2024 9:49 AM EST Rosa M Rincon MD POINT OF CARE TEST ENTER/E DIT ORDERABLES Final Result Performing Organization Address [facility]/ZIP Co de Phone Number [facility] [address] [place] [phone] * Influenza A (ID NOW Rapid Molecular) (09/14/2024 9:49 AM EST) Influenza A Negative Negative, Indeterminate [facility] Swab 09/14/2024 9:49 AM EST Rosa M Rincon MD POINT OF CARE TEST ENTER/E DIT ORDERABLES Final Result Performing Organization Address [facility] Co de Phone Number [facility] [address] [place] [phone] documented in this encounter Visit Diagnoses Diagnosis Cough, unspecified type- Primary Influenza B Influenza with other respiratory manifestations documented in this encounter Additional Health Concerns Assessment Noted Time PHQ-9 Depression Total Score: 8 05/22/20 23 11:01 AM EDT documented as of this encounter Care Teams Transmission Superintendent Relationship Specialty Start Date End Date Kathleen Bustamante MD [address] [place] [address] PCP - General Family Medicine 05/22/23 documented as of this encounter
--- OUTSIDE RECORDS SUMMARY | 2024-09-21 12:48 | XMS_ITS | Clinical Summary ---
Author Organization [employer] [facility] Address [address] [place] [address] Care Team Providers Care Interlocker Name Role Phone Crow Armijo MD Primary Care Provider [phone] Allergies Active Allergy Reactions Criticality Noted Date Comments Cat Dander 08/10/2024 Codeine 08/10/2024 Dog Dander 08/10/2024 House Dust 08/10/2024 Medications Medication Sig Dispensed Refills Start Date End Date Status diclofenac (VOLTAREN) 1 % topical gel Apply 1 Dose topically 3 times daily. - Apply externally Active glucosamine/chondro ingram A/C/Mn (GLUCOSAMINE-CHONDRO IT-VIT C-MN ORAL) Take by mouth. 1500 Complx Cap Active Immunizations Name Administration Dates Next Due Tdap Tetanus diptheria acell ular pertussis (Boostrix; Adacel) 7yo and older 03/03/2019 Family History Medical History Relation Name Comments No Known Problems Father Other: many medical issues, no details Mother Relation Name Status Comments Father Mother Alive Social History Tobacco Use Types Packs/Day Years Used Date Smoking Tobacco: Former Smokeless Tobacco: Never Alcohol Use Standard Drinks/Week Comments Yes 0 (1 standard drink = 0.6 oz pur e alcohol) Sex and Gender Information Value Date Recorded Sex Assigned at Not on file Gender Identity Not on file Sexual Orientation Not on file Obstetrics History Last Filed Vital Signs Vital Sign Reading Time Taken Comments Blood Pressure 126/68 05/29/2022 8:52 AM EDT Pulse 68 05/29/2022 8:52 AM EDT Temperature - - Respiratory Rate - - Oxygen Saturation - - Inhaled Oxygen Concentration - - Weight 101 kg (221 lb 9.6 oz) 05/29/2022 8:52 AM EDT Height 177.8 cm (5' 10 ) 05/29/2022 8:52 AM EDT Body Mass Index 31.8 05/29/2022 8:52 AM EDT Plan of Treatment Health Maintenance Due Date Last Done Comments Hepatitis B Vaccines (1 of 3 - 19+ 3-dose series) 1994 Colorectal Cancer Screening: Colonoscopy 02/05/2020 Social Influencers of Health Screening 02/05/2020 COVID-19 Vaccine (1 - 2023-2 5 season) 2024 Influenza Vaccine (#1) 2024 Depression Screening 05/22/2024 05/22/2023 Cholesterol Screening (Lipid Panel) 10/01/2024 10/01/2019 DTaP,Tdap,and Td Vaccines (2 - Td or Tdap) 03/03/2029 03/03/2019 HIV Screening Completed 03/29/2016 Hepatitis C Screening Completed 03/29/2016 HIB Vaccines Aged Out No longer eligi ble based on patient's age to complete this topic HPV Vaccines Aged Out No longer eligi ble based on patient's age to complete this topic Hepatitis A Vaccines Aged Out No long er eligible based on patient's age to complete this topic IPV Vaccines Aged Out No longer eligi ble based on patient's age to complete this topic MMR Vaccines Aged Out No longer eligi ble based on patient's age to complete this topic Meningococcal ACWY Vaccine Aged Out N o longer eligible based on patient's age to complete this topic Pneumococcal Vaccine: Pediat rics (0 to 5 Years) and At-Risk Patients (6 to 64 Years) Aged Out No longer eligi ble based on patient's age to complete this topic RSV Immunization Patients Un barbara 20 months Aged Out No longer eligible b ased on patient's age to complete this topic Varicella Vaccines Aged Out No longer eligible based on patient's age to complete this topic Procedures Procedure Name Priority Date/Time Associated Diagnosis Comments LIPID PANEL Routine 10/01/2019 HEPATITIS C SCREENING Routine 03/29/2016 HIV SCREENING Routine 03/29/2016 from Last 3 Months or Most Recently Relevant to Health Maintenance Results * (ABNORMAL) Lipid panel (10/01/2019) LDL/HDL Ratio 4 0 - 4 Triglycerides 109 0 - 150 mg/dL Cholesterol 213(A) 0 - 200 mg/dL HDL 59 40 mg/dL LDL Cholesterol 133(A) 0 - 100 mg/dL Blood Venous blood specimen / Unknown Historical Provider LAB BLOOD ORDERAB LES * HIV Screening (03/29/2016) Pathologist [facility] HIV Screening Abstracted Historical Provider MD WONG MAINTENMARITZA E * Hepatitis C Screening (03/29/2016) Pathologist [facility] Hepatitis C Screening Abstracted Historical Provider MD MARVIN PATTERSON E from Last 3 Months or Most Recently Relevant to Health Maintenance Care Teams Interlocker Relationship Specialty Start Date End Date Crow Armijo MD [address] [place] [address] PCP - General Internal Medicine 02/24/19
--- OUTSIDE RECORDS SUMMARY | 2024-09-21 12:48 | XMS_ITS | Encounter Summary ---
Author Organization [employer] Address [address] [facility] 7t [place] [address] Care Team Providers Care Insecticide Expert Name Role Phone Kathleen Bustamante MD Primary Care Provider [phone] Encounter Details Date Type Department Care Team (Latest Contact Info) Description 09/07/2024 Travel Social History Tobacco Use Types Packs/Day [...] documented as of this encounter Care Teams Insecticide Expert Relationship Specialty Start Date End Date Kathleen Bustamante MD [address] [place] [address] PCP - General Family Medicine 05/22/23 documented as of this encounter
--- OUTSIDE RECORDS SUMMARY | 2024-09-21 12:48 | XMS_ITS | Clinical Summary ---
Author Organization [employer] Address [address] [facility] 7t [place] [address] Care Team Providers Care Retail Advertising Account Executive Name Role Phone Kathleen Bustamante MD Primary Care Provider [phone] Allergies Active Allergy Reactions Criticality Noted Date Comments Cat Dander 03/03/2019 Codeine 04/02/2023 Dog Epithelium 03/03/2019 Dust Mite Extract 08/10/2024 Medications glucosamine-cho ndroitin 500-400 MG tablet Take 1 tablet by mouth 3 times daily. Active terbinafine (LamISIL AT) 1 % creamIndication s:Tinea pedis of both feet Apply topically 2 times daily. 42 g 3 Active triamcinolone (Kenalog) 0.5 % ointment Apply topically 2 times daily. 60 g 3 Active Diclofenac Sodium 1 % gel Apply 1 Dose topically 3 times daily. - Apply externally Active amLODIPine (Norvasc) 5 MG tablet Take 1 tablet (5 mg) by mouth Once per day. 90 tablet 1 5 Active doxepin (SINEquan) 10 MG capsule Take 1 capsule (10 mg) by mouth at bedtime. 90 capsule 1 5 Active ipratropium (Atrovent) 0.06 % nasal sprayIndication s:Cough, unspecified type 2 sprays each nostril bid prn rhinorrhea, niuean 15 mL 5 Active benzonatate (Tessalon Perles) 100 MG capsuleIndicati ons:Cough, unspecified type Take 1 capsule (100 mg) by mouth if needed in the morning, at noon, and at bedtime for cough. Do not crush or chew. 20 capsule 5 026 Active traZODone (Desyrel) 50 MG tablet Take 1 tablet (50 mg) by mouth at bedtime. 90 tablet 1 5 025 Discontinu ed(Therapy completed) azithromycin (Zithromax) 250 MG tabletIndicatio ns:Cough, unspecified type Take 2 tablets (500 mg) by mouth Once per day for 1 day, THEN 1 tablet (250 mg) Once per day for 4 days. 6 tablet 5 025 oseltamivir (Tamiflu) 75 MG capsuleIndicati ons:Influenza A Infection Take 1 capsule (75 mg) by mouth 2 times daily for 5 days. 10 capsule 5 025 Active Problems Problem Noted Date Diagnosed Date Persistent cough for 3 weeks or longer 5 Assessment & Plan (09/21/2024 11:19 AM EST): Initial symptoms with main concern of cough started around 09/07/24, had negative swabs at the time. Second evaluation for persisting/worsening symptoms on 09/14/24 where pt tested positive for influenza. Today pt resents for prolonged/lingering cough with clear sputum, but notes otherwise symptoms have improved/resolved. -ordered CXR 09/21/24 Cough 09/14/2024 Overview (09/14/2024): - Prescribed azithromycin (Zithromax) 250 MG tablet 09/14/24 - Prescribed ipratropium (Atrovent) 0.06 % nasal spray 09/14/24 - Prescribed benzonatate (Tessalon Perles) 100 MG capsule 09/14/24 - ER precautions discussed. 09/14/24 - Seek medical attention for worsening symptoms. 09/14/24 Assessment & Plan (09/14/2024 9:56 AM EST): - Prescribed azithromycin (Zithromax) 250 MG tablet 09/14/24 - Prescribed ipratropium (Atrovent) 0.06 % nasal spray 09/14/24 - Prescribed benzonatate (Tessalon Perles) 100 MG capsule 09/14/24 - ER precautions discussed. 09/14/24 - Seek medical attention for worsening symptoms. 09/14/24 Influenza B 09/14/2024 Overview (09/14/2024): - Prescribed oseltamivir (Tamiflu) 75 MG capsule 09/14/24 - ER precautions discussed. 09/14/24 - Seek medical attention for worsening symptoms. 09/14/24 Assessment & Plan (09/14/2024 9:56 AM EST): - Prescribed oseltamivir (Tamiflu) 75 MG capsule 09/14/24 - ER precautions discussed. 09/14/24 - Seek medical attention for worsening symptoms. 09/14/24 Cough in adult patient 09/07/2024 Overview (09/07/2024): Presumed Covid because son tested Positive. - Note provided for sick time from work 09/07/24 Assessment & Plan (09/07/2024 10:32 AM EST): Presumed Covid because son tested Positive. - Note provided for sick time from work 09/07/24 Diverticulosis 08/30/2024 Primary hypertension 08/30/2024 Assessment & Plan (09/21/2024 11:21 AM EST): BP slightly elevated, not controlled. Strongly encouraged patient to take his medications. Assessment & Plan (08/30/2024 1:43 PM EST): BP is uncontrolled. Recheck is 148/88. Begin Amlodipine 5 MG and follow up in 3 weeks with nurse for recheck. Monitor BP at home. Ordering lab work for further evaluation. Relevant Medications Amlodipine (Norvasc) 5 MG tablet Insomnia 08/30/2024 Assessment & Plan (08/30/2024 1:43 PM EST): Issues with sleep maintenance, will start on trazodone. Relevant Medications Doxepin (Sinequan) 10 MG Capsule Skin ulcer of nose, limited to breakdown of skin 04/01/2024 Assessment & Plan (04/01/2024 1:45 PM EDT): Symptomatology en physical examination indicative of a painful ulceration with superimposed infection Etiology ? Herpetic VS Bacterial Plan: Obtained Viral Culture to rule out HSV 1/2 Treat as Herpetic lesion with superimposed infection Valtrex 1 gram BID x 10 days Doxy 100 mg BID x 7 days I recommended patient to be tested for STIs. Pt declined he verbalized understanding of missing serious conditions. He stated he was convinced there was no risk for STIs therefore he did not want to be tested. He mentioned testing would exacerbate his anxiety. Elevated blood pressure reading 07/10/2023 Assessment & Plan (07/10/2023 2:51 PM EST): Uncontrolled: patient presented visit with an elevated blood pressure with readings of: 144/88 mmHg. Will not prescribing medication at this time, however, patient was recommended to monitor blood pressure at home at least once a day, and bring readings upon next office visit. Patient had blood pressure retaken at the time of visit with readings of: 134/88 mmHg. Class 1 obesity 05/22/2023 Assessment & Plan (07/10/2023 2:50 PM EST): Discussed calorie deficit, recommended reduction of 20-30% of maintenance calories; superintendent track referral offered. Recommended to decrease soda and sugary beverage consumption. Recommended at least 20 g per meal of protein to assist with satiety. Recommended at least 150 min/week of moderate intensity exercise. Upon visit, patient was advised to talk to Nutrionist to persue weight loss: patient accepted. For these reason, patient will be referred to Nutrition Services. Assessment & Plan (05/22/2023 11:33 AM EDT): Discussed calorie deficit, recommended reduction of 20-30% of maintenance calories; superintendent track referral offered. Recommended to decrease soda and sugary beverage consumption. Recommended at least 20 g per meal of protein to assist with satiety. Recommended at least 150 min/week of moderate intensity exercise. Resolved Problems Problem Noted Date Diagnosed Date Resolved Date Upper respiratory tract infection 07/10/2023 07/23/2023 Assessment & Plan (07/10/2023 2:50 PM EST): Patient that presented visit with complaints of upper respiratory tract infection will be prescribe Amoxicillin. Encounters Date Type Department Care Team Description 09/21/2024 11:20 AM EST Office Visit [facility] [address] [address] Rosa M Rincon MD Persistent cough for 3 weeks or longer (Primary Dx); Primary hypertension 09/14/2024 9:40 AM EST [facility] [address] [address] Rosa M Rincon MD Cough, unspecified type (Primary Dx); Influenza B 09/07/2024 9:40 AM EST [facility] [address] [address] Rosa M Rincon MD Cough in adult patient 09/07/2024 Travel 08/30/2024 1:00 PM EST Office Visit [facility] [address] [place] [address] Kathleen Bustamante MD Primary hypertension (Primary Dx); Diverticulosis; Screening due; Dietary counseling; Exercise counseling; Class 1 obesity with serious comorbidity and body mass index (BMI) of 34.0 to 34.9 in adult, unspecified obesity type; Insomnia, unspecified type 08/30/2024 Travel 08/20/2024 Patient Outreach [facility] [address] [place] [address] Kathleen Bustamante MD Pre-visit Planning (SDOH unable to reach LVM) 07/08/2024 Patient Outreach [facility] [address] [place] [address] Kathleen Bustamante MD Pre-visit Planning (SDOH unable to reach LVM) from Last 3 Months Immunizations Name Administration Dates Next Due Tdap 03/03/2019 Social History Tobacco Use Types Packs/Day Years [...] Don't know 04/02/2023 8: 32 AM EDT Last Filed Vital Signs Vital Sign Reading Time Taken Comments Blood Pressure 160/100 09/21/2024 11:26 AM EST Pulse 89 09/14/2024 9:00 AM [...] Mass Index 33.85 09/14/2024 9:00 AM EST Plan of Treatment Health Maintenance Due Date Last Done Comments CT Colonography 1975 FIT DNA/Cologuard 1975 FIT 1975 FOBT 1975 HIV Screening 1975 Sigmoidoscopy 1975 Family Planning (PISQ) 1990 Hepatitis C Screening 1993 Hepatitis B Vaccines (1 of 3 - 19+ 3-dose series) 1994 Depression Screening 05/22/2024 05/22/2023, 05/22/2023 SDOH Screening 07/02/2024 07/02/2023 Influenza Vaccine (#1) 2025 Postp oned from 04/25/2024 (Patient Refused) Zoster Vaccines (1 of 2) 2025 Alcohol/Substance Use Screening 08/30/2025 08/30/2024 COVID-19 Vaccine (1 - 2023-2 5 season) 2025 Postponed from 04/25 (Patient Refused) Tobacco Screening 09/14/2025 09/14/2024 Lipid Panel 06/05/2028 06/05/2023 DTaP/Tdap/Td Vaccines (2 - T d or Tdap) 03/03/2029 03/03/2019 Colonoscopy 04/30/2034 Colorectal Cancer Screening 04/30/2034 RSV Patients and Patients Aged 60 years or older (1 - 1-dose 75+ series) 2050 HIB Vaccines Aged Out No longer eligi [...] patient's age to complete this topic Meningococcal Vaccine Aged Out No balta barry eligible based on patient's age to complete this topic Pneumococcal Vaccine: Pediatrics (0 to 5 Years) and At-Risk Patients (6 to 64 Years) Aged Out No longer eligible b ased on patient's age to complete this topic RSV under 20 months Aged Out No longe r eligible based on patient's age to complete this topic Rotavirus Vaccines Aged Out No longer eligible based on patient's age to complete this topic Procedures Procedure Name Priority Date/Time Associated Diagnosis Comments XR CHEST 2 VIEWS Routine 09/21/2024 11:3 3 AM EST Persistent cough for 3 weeks or longer POCT RAPID COVID ANTIGEN Routine 09/14/2024 9:49 AM EST Cough, unspecified type POCT INFLUENZA B (ID NOW RAPID MOLECULAR) Routine 09/14/2024 9:49 AM EST Cough, unspecified type POCT INFLUENZA A (ID NOW RAPID MOLECULAR) Routine 09/14/2024 9:49 AM EST Cough, unspecified type POCT INFLUENZA B (ID NOW RAPID MOLECULAR) Routine 09/07/2024 10:03 AM EST Cough in adult patient POCT INFLUENZA A (ID NOW RAPID MOLECULAR) Routine 09/07/2024 10:02 AM EST Cough in adult patient POCT RAPID COVID ANTIGEN Routine 09/07/2024 9:51 AM EST Cough in adult patient LIPID PANEL, STANDARD Routine 06/05/2023 2:02 PM EDT Class 1 obesity without serious comorbidity with body mass index (BMI) of 31.0 to 31.9 in adult, unspecified obesity type from Last 3 Months or Most Recently Relevant to Health Maintenance Results * XR Chest 2 Views (09/21/2024 11:33 AM EST) Anatomical Region Laterality Modality Chest Radiographic Malinda ging 09/21/2024 11:3 3 AM EST Narrative 09/21/2024 12:08 PM EST ?[facility] ?[address] ?[place] [address] ?XRay Report ? Signed ? Patient: Charlestson,Christopher ?MR#: [id number] ?? [id number] ? : 1975 ?Acct:[id number] ? Age/Sex: 49 / M ?ADM Date: 01/28/25 ? Loc: HO.HHCX ? Attending Dr: Rosa M Rincon MD ? Ordering Physician: Rosa M Rincon MD ?? Date of Service: 09/21/24 ?? Procedure(s): XR chest 2V ?? Accession Number(s): [id number] ? cc: Rosa M Rincon MD ? [...] DD/ 1133 ? TD/TT: 09/21/24 1155 ? Lurer: MSM ? Procedure Note Magdaleno, Image - 09/21/[address] [address] XRay Report Signed Patient: Becky Davis#: [id number] : 1975Acct:[id number] Age/Sex: 49 / MADM Date: 09/21/24 Loc: HO.HHCX Attending Dr: Rosa M Rincon MD Ordering Physician: Rosa M Rincon MD Date of Service: 09/21/24 Procedure(s): XR chest 2V Accession Number(s): [id number] cc: Rosa M Rincon MD EXAMINATION: XR CHEST CLINICAL INFORMATION: chornic cough COMPARISON: None available. TECHNIQUE: 2 views of the chest were obtained. FINDINGS: No significant abnormality is noted involving the heart, lungs, mediastinum, bony thorax or soft tissues. XR/XR chest 2V IMPRESSION: Unremarkable chest exam. Electronically signed by: Joseph García MD 09/21/2024 12:06 PM [facility] Dictated By: Joseph García MD Signed By: <Electronically signed by Joseph García MD in OV> 09/21/24 1206 DD/ 1133 TD/TT: 09/21/24 1155 Lurer: MSM us Rosa M Rincon MD IMG XR PROCEDURES Final Re sult * (ABNORMAL) Influenza B (ID NOW Rapid Molecular) (09/14/2024 9:49 AM EST) Only the most recent of2 resultswithin the time period is included. Pathologist [facility] Influenza B Positive( A) Negative, Indeterminate [facility] Swab 09/14/2024 9:49 AM EST Rosa M Rincon MD POINT OF CARE TEST ENTER/E DIT ORDERABLES Final Result Performing Organization Address [facility] [place] Phone Number [facility] [address] [place] [phone] * Influenza A (ID NOW Rapid Molecular) (09/14/2024 9:49 AM EST) Only the most recent of2 resultswithin the time period is included. [facility] Influenza A Negative Negative, Indeterminate [facility] Swab 09/14/2024 9:49 AM EST Rosa M Rincon MD POINT OF CARE TEST ENTER/E DIT ORDERABLES Final Result Performing Organization Address [facility] Co [place] Phone Number [facility] [address] [place] [phone] * POCT Rapid COVID Ag (09/14/2024 9:49 AM EST) Only the most recent of2 resultswithin the time period is included. [facility] Rapid COVID Ag Negative Swab 09/14/2024 9:49 AM EST Rosa M Rincon MD POINT OF CARE TEST ENTER/E DIT ORDERABLES Final Result * (ABNORMAL) Lipid Panel, Standard (06/05/2023 2:02 PM EDT) Pathologist [facility] Triglycerides 102 <150 mg/dL [facility] Comment:Desirable Triglyceri de: less than 150 mg/dLBorderline High Triglyceride 150-199 mg/dLHigh Triglyceride: 200-499 mg/dLVery High Triglyceride: greater than or equal to 5OO mg/dL Cholesterol 219(H) <200 mg/dL [facility] Comment:Desirable Cholestero l: less than 200 mg/dLBorderline High Cholesterol: 200-239 mg/dLHigh Cholesterol: greater than 239 mg/dL LDL Cholesterol Calculated 147(H) <100 mg/dL [facility] Comment:Desirable LDL: less than 100 mg/dLNear Optimal/Above Optimal LDL: 110- 129 mg/dLBorderline High LDL: 130-159 mg/dLHigh LDL: 160-189 mg/dLVery High LDL: greater than or equal to 190 mg/dL HDL Cholesterol 52 >40 mg/dL [facility] Comment:Desirable HDL: great er than 40 mg/dL Note: This HDL assay may give artificially low results in patients with liver disease. Blood Venous blood specimen / Unknown 06/05/2023 2:02 PM EDT 06/05/2023 5:19 PM EDT us Kathleen Bustamante MD LAB BLOOD ORDERABLES Final Re sult [facility] [address] [place] [phone] from Last 3 Months or Most Recently Relevant to Health Maintenance Insurance [facility] [employer] Care Teams Retail Advertising Account Executive Relationship Specialty Start Date End Date Kathleen Bustamante MD [address] [place] [phone] PCP - General Family Medicine 05/22/23
--- OUTSIDE RECORDS SUMMARY | 2024-09-21 12:48 | XMS_ITS | Encounter Summary ---
Author Organization [employer] Address [address] [facility] [address]t [place] [address] Care Team Providers Care Radio Frequency Design Engineer Name Role Phone Kathleen Bustamante MD Primary Care Provider [phone] Reason for Visit * Reason Comments Cough Encounter Details Date Type Department Care Team ([facility] Contact Info) Description 09/07/2024 9:40 AM EST Office Visit [facility] [address] [place] [address] [phone] Rosa M Rincon MD [address] [place], [place] [phone] Cough in adult patient Social History Tobacco Use Types Packs/Day Years [...] Sign Reading Time Taken Comments Blood Pressure 143/89 09/07/2024 9:46 AM EST Pulse 81 09/07/2024 9:46 AM EST Temperature 37 ??C (98.6 ??F) 09/07/2024 9:46 AM EST Respiratory Rate 18 09/07/2024 9:46 AM EST Oxygen Saturation 97% 09/07/2024 9:46 AM EST Inhaled Oxygen Concentration - - Weight 110 kg (243 lb) 09/07/2024 9:46 AM EST Height - - Body Mass Index 35.88 08/30/2024 1:10 PM EST documented in this encounter Progress Notes * Izzy Medrano MA - 09/07/2024 9:40 AM EST Subjective History was provided by the patient. Tenzin Davis is a 49 y.o. male who presents for evaluation of symptoms of a URI, Presumed Covid due to son having Covid . Symptoms include cough. Onset of symptoms was unknown, unchanged since that time. Associated negative symptoms include fever and shortness of breath. Evaluation to date: none. Treatment to date: none Objective Vitals: 09/07/24 0946 BP: (!) 143/89 BP Location: Left arm Patient Position: Sitting BP Cuff Size: Large adult Pulse: 81 Resp: 18 Temp: 98.6 ??F (37 ??C) TempSrc: Oral SpO2: 97% Weight: 243 lb (110 kg) Physical Exam Constitutional: Appearance: Normal appearance. Cardiovascular: Rate and Rhythm: Normal rate and regular rhythm. Heart sounds: Normal heart sounds. Pulmonary: Effort: Pulmonary effort is normal. Breath sounds: Normal breath sounds. Musculoskeletal: Cervical back: Normal range of motion and neck supple. Lymphadenopathy: Cervical: No cervical adenopathy. Skin: General: Skin is warm and dry. Neurological: Mental Status: Mental status is at baseline. Psychiatric: Behavior: Behavior normal. Office Visit on 09/07/2024 Component Date Value Ref Range Status Rapid COVID Ag 09/07/2024 Negative Final Influenza A 09/07/2024 Negative Negative, Indeterminate Final Influenza B 09/07/2024 Negative Negative, Indeterminate Final Problem List Items Addressed This Visit Cough in adult patient Presumed Covid because son tested Positive. - Note provided for sick time from work 09/07/24 Relevant Orders POCT Rapid COVID Ag (Completed) Influenza A (ID NOW Rapid Molecular) (Completed) Influenza B (ID NOW Rapid Molecular) (Completed) -No evidence of respiratory distress. Symptoms mild. -No evidence of dehydration. -Supportive care advised. -Isolation recommendations discussed. -ER precautions discussed. -Seek medical attention for worsening symptoms. I, Izzy Medrano, am serving as a scribe to document services personally performed by Dr. Rosa M Rincon, based on the patient's response to questions by provider and providers statements to me. documented in this encounter Miscellaneous Notes * Assessment & Plan Note - Izzy Medrano MA - 09/07/2024 10:32 AM EST Associated Problem(s): Cough in adult patient Presumed Covid because son tested Positive. - Note provided for sick time from work 09/07/24 documented in this encounter Plan of Treatment [...] 9:51 AM EST Cough in adult patient documented in this encounter Results * Influenza B (ID NOW Rapid Molecular) (09/07/2024 10:03 AM EST) Pathologist [facility] Influenza B Negative Negative, Indeterminate [facility] Swab 09/07/2024 10:0 3 AM EST Rosa M Rincon MD POINT OF CARE TEST ENTER/E DIT ORDERABLES Final Result Performing Organization Address City/[facility]/ZIP Co de Phone Number [facility] [address] [place] [phone] * Influenza A (ID NOW Rapid Molecular) (09/07/2024 10:02 AM EST) [facility] Influenza A Negative Negative, Indeterminate [facility] Swab 09/07/2024 10:0 2 AM EST Rosa M Rincon MD POINT OF CARE TEST ENTER/E DIT ORDERABLES Final Result Performing Organization Address [facility]/ZIP Co de Phone Number [facility] [address] [place] [phone] * POCT Rapid COVID Ag (09/07/2024 9:51 AM EST) [facility] Rapid COVID Ag Negative Swab 09/07/2024 9:51 AM EST Rosa M Rincon MD POINT OF CARE TEST ENTER/E DIT ORDERABLES Final Result documented in this encounter Visit Diagnoses Diagnosis Cough in adult patient documented in this encounter Additional Health Concerns Assessment Noted Time PHQ-9 Depression Total Score: 8 05/22/20 23 11:01 AM EDT documented as of this encounter Care Teams Radio Frequency Design Engineer Relationship Specialty Start Date End Date Kathleen Bustamante MD [address] [place] [phone] PCP - General Family Medicine 05/22/23 documented as of this encounter
== END 2024-09-21 11:33 | disposition home or self-care (01) ==
LOC: HO.HHCX 11:32
PROVIDERS: Visit Provider Family Medicine
DX: R05.3 Chronic cough (principal)
CPT/HCPCS: 71046

== ENCOUNTER → 2024-09-21 11:33 | Outpatient (BNV) | payer OTHER, SELFPAY | PROVIDERS: Visit Provider Radiology Diagnostic Radiology | DX: R05.3 Chronic cough (principal) | CPT/HCPCS: 71046 ==

== ENCOUNTER 2024-11-02 16:21 | Outpatient (REF) | payer OTHER, SELFPAY ==
[2024-11-02 18:34] LABS: MANUAL DIFF FLAG NO
[2024-11-02 18:37] LABS: Appearance Urine Clear; Color Urine Yellow; Glucose Urine UA Negative (Negative); Leukocyte Esterase Urine Negative (Negative); Nitrite Urine Negative (Negative); Specific Gravity - Urine 1.025 (1.005-1.025); UMIC TRIGGER UACC YES; Urine Blood Small (1+) (Negative); Urine Ketones Negative (Negative); Urine Protein Negative (Neg-Trace)
[2024-11-02 18:45] LABS: Bacteria Urine None Seen (None Seen); Hyaline Casts Urine 0-2 /LPF (0-2); Squamous Epithelial Cell Urine 0-2 /HPF (0-2); WBC Urine 0-5 /HPF (0-5)
[2024-11-02 18:46] LABS: Basophils Percent Auto 0.7 % (0-2); Eosinophils Absolute Auto 0.1 X10*3/uL (0.0-0.4); Eosinophils Percent Auto 2.2 % (0-4); Hematocrit 43.2 % (42.0-52.0); Hemoglobin 14.5 g/dl (14.0-18.0); Lymphocytes Absolute Auto 2.2 X10*3/uL (1.2-4.9); Lymphocytes Percent Auto 37.7 % (20-40); Mean Corpuscular HGB Conc 33.6 g/dl (31.0-36.0); Mean Corpuscular Hemoglobin 30.8 pg (27.0-33.0); Mean Corpuscular Volume 91.7 fL (80.0-98.0); Mean Platelet Volume 9.5 fL (9.4-12.4); Monocytes Absolute Auto 0.5 X10*3/uL (0.1-1.2); Monocytes Percent Auto 8.6 % (2-11); Neutrophils Absolute Auto 2.9 x10*3/uL (2.0-8.3); Neutrophils Percent Auto 50.8 % (45-73); Platelet Count 289 X10*3/uL (160-400); Red Blood Count 4.71 X10*6/uL (4.60-5.80); Red Cell Distribution Width 12.1 % (11.0-16.0); White Blood Count 5.8 X10*3/uL (4.8-10.8)
[2024-11-02 19:16] LABS: Alanine Aminotransferase 32 U/L (0-40); Albumin Level 4.7 g/dL (3.5-5.0); Alkaline Phosphatase 73 U/L (39-117); Anion Gap 14 (12-20); Anion Gap 17 (12-20); Aspartate Amino Transferase 23 U/L (5-37); Bilirubin Total 0.4 mg/dL (0.0-1.0); Blood Urea Nitrogen 13 mg/dL (9-16); Calcium 9.4 mg/dL (8.4-10.2); Calcium 9.5 mg/dL (8.4-10.2); Carbon Dioxide 25 mmol/L (22-29); Carbon Dioxide 26 mmol/L (22-29); Chloride 104 mmol/L (96-108); Chloride 105 mmol/L (96-108); Cholesterol 267 mg/dL (<200); Estimated Glomerular Filt Rate > 60; Glucose Random 88 mg/dL (60-115); Glucose Random 89 mg/dL (60-115); HDL Cholesterol 55 mg/dL (>40); LDL Cholesterol Calculated 180 mg/dL (<100); Potassium 3.8 mmol/L (3.3-5.1); Potassium 3.9 mmol/L (3.3-5.1); Sodium 141 mmol/L (135-145); Sodium 142 mmol/L (135-145); Total Protein 8.1 g/dL (6.5-8.0); Triglycerides 161 mg/dL (<150)
--- OUTSIDE RECORDS SUMMARY | 2024-11-02 19:23 | XMS_ITS | Encounter Summary ---
Author Organization [employer] Address [address] [facility] [address] [place] [address] Care Team Providers Care Lye Machine Operator Name Role Phone Kathleen Bustamante MD Primary Care Provider [phone] Reason for Visit * Reason Comments Med Change Request Encounter Details Date Type Department Care Team ([facility] Contact Info) Description 10/06/2024 Refill [facility] [address] [place] [address] [phone] Rosa M Rincon MD [address] [place], [place] [phone] Cough, unspecified type Social History Tobacco Use Types [...] as of this encounter Visit Diagnoses Diagnosis Cough, unspecified type documented in this encounter Additional Health Concerns Assessment Noted Time PHQ-9 Depression Total Score: 8 05/22/20 23 11:01 AM EDT documented as of this encounter Care Teams Lye Machine Operator Relationship Specialty Start Date End Date Kathleen Bustamante MD [address] [place] [phone] PCP - General Family Medicine 05/22/23 documented as of this encounter
--- OUTSIDE RECORDS SUMMARY | 2024-11-02 19:23 | XMS_ITS | Encounter Summary ---
Author Organization [employer] Address [address] [facility] 7[address] [place] [address] Care Team Providers Care Fire Official Name Role Phone Kathleen Bustamante MD Primary Care Provider [phone] Reason for Visit * Reason Comments Care Coordination CHW outreach for SDO H food + utilities and housing search- referral completed Encounter Details Date Type Department Care Team (Latest Contact Info) Description 11/01/2024 Patient Outreach [facility] PEDS [address] [place] [address] Kathleen Bustamante MD [address] [place] [address] Care Coordination (CHW outreach for SDOH food + utilities and housing search-referral completed ) Social History Tobacco Use Types Packs/Day Years Used Date Smoking Tobacco: Never Passive Smoke Exposure: Never Smokeless Tobacco: Never Alcohol Use Standard Drinks/Week Comments Never 0 (1 standard drink = 0.6 oz pur e alcohol) Depression Answer Date Recorded Patient Health Questionnaire-9 Score 14 11/02/2024 Patient Health Questionnaire-9 Score 14 11/02/2024 Last PHQ-9: Questionnaire Data Not on file 0 11/02/2024 Housing Stability Answer Date Recorded What is your housing situation today? I have mandy lawson 11/02/[address] you li ve. Do you have problems with any of the following? None of the above 11/02/2024 Food Insecurity Answer Date Recorded Within the past 12 months, y ou worried that your food would run out before you got money to buy more: Never True 11/02/2024 Within the past 12 months,th e food you bought just didn't last and you didn't have enough money to get more: Never True 06/2025 Transportation Answer Date Recorded In the past 12 months, has l ack of transportation kept you from medical appts, meetings, work or from getting things needed for daily living? No 11/02/2024 Utilities Answer Date Recorded In the past 12 months, has t he electric, gas, oil or water company threatened to shut off services in your home? Yes 11/02/2024 Depression Answer Date Recorded Patient Health Questionnaire-2 Score 3 11/02/2024 Internet Access Answer Date Recorded Internet Access Q1 Yes 11/02/2024 Internet Access Q2 Not on file 11/02/2024 Sex and Gender Information Value Date Recorded Sex Assigned at Male 04/02/2023 8:32 AM EDT Legal Sex Male 3:15 PM EST Gender Identity Male 04/02/2023 8:32 AM EDT Sexual Orientation Don't know 04/02/2023 8: 32 AM EDT documented as of this encounter Progress Notes * Ludwig Barriga - 11/01/2024 11:32 AM EDT CHW Ludwig Barriga, placed outbound call to patient for assistance with SDOH as a referral was received by the provider. Patient's name and were confirmed. Patient screened positive for the following SDOH housing insecurities. CHW referred patient to list of housing and applications mail out to address on file. Patient verbalizes understanding, and able to agree to follow up with housing search and call. Patient educated on extended clinic hours on Mondays through Wednesdays, and Walk-In Urgent Care Located in [facility]. Patient provided with after-hours line for [facility], , which offer night time triage service and option to transfer to solar electric practitioner provider if needed. documented in this encounter Plan of Treatment Not on file documented as of this encounter Visit Diagnoses Not on filedocumented in this encounter Additional Health Concerns Assessment Noted Time PHQ-9 Depression Total Score: 8 05/22/ 23 11:01 AM EDT documented as of this encounter Care Teams Fire Official Relationship Specialty Start Date End Date Kathleen Bustamante MD [address] [place] [address] PCP - General Family Medicine 05/22/23 documented as of this encounter
--- OUTSIDE RECORDS SUMMARY | 2024-11-02 19:23 | XMS_ITS | Encounter Summary ---
Author Organization [employer] Address [address] [place] [address] [address] [place] [address] Care Team Providers Care Radio Rigger Name Role Phone Kathleen Bustamante MD Primary Care Provider [phone] Reason for Referral * Consultation (Routine) - Authorized Specialty Diagnoses / Procedures Referred By Steve manriquez Referred To Contact Behavioral Health Diagnoses Other depression Angel Rebolledo MD [address] [place] [address] Phone: tel: fax: Referral ID Status Reason Start Date Expiration Date Visits Requested Visits Authorized [id number] Authorized Specialty Services Required 11/02/2024 11/02/2025 1 1 Reason for Visit * Reason Comments Hypertension Encounter Details Date Type Department Care Team ([facility] st Contact Info) Description 11/02/2024 3:45 PM EDT Office Visit [facility] PEDS [address] [place] [address] Angel Rebolledo MD [address] [place] [address] Primary hypertension (Primary Dx); Anxiety; Other depression; Gross hematuria; Primary hypertension Social History Tobacco Use Types [...] Sign Reading Time Taken Comments Blood Pressure 134/81 11/02/2024 3:54 PM EDT Pulse 68 11/02/2024 3:54 PM EDT Temperature 36.7 ??C (98 ??F) 11/02/2024 3:54 PM EDT Respiratory Rate 20 11/02/2024 3:54 PM EDT Oxygen Saturation 96% 11/02/2024 3:54 PM EDT Inhaled Oxygen Concentration - - Weight 106 kg (233 lb) 11/02/2024 3:54 PM EDT Height 175.3 cm (5' 9 ) 11/02/2024 3:54 PM EDT Body Mass Index 34.41 11/02/2024 3:54 PM EDT documented in this encounter Progress Notes * Angel Rebolledo MD - 11/02/2024 3:45 PM EDT Subjective Patient ID: Tenzin Davis is a 49 y.o. male who presents for Hypertension. Hypertension This is a chronic problem. The problem is controlled. Pertinent negatives include no anxiety, blurred vision, chest pain, malaise/fatigue, neck pain, orthopnea, peripheral edema, PND or shortness of breath. C/o feeling anxious and depressed. Denies SI/HI. Pt States he does not feel as happy as he used to be. Mr Tenzin Davis feels he is unable to return to work because he is feels overwhelmed. He feels he needs more time to recover. He is worried about many problems and does not have time to do things. Patient is also complaining of left flank pain on and off associated with gross hematuria for the last week and a half. Denies any trigger. No recent for/trauma. Patient Active Problem List Diagnosis Class 1 obesity Elevated blood pressure reading Skin ulcer of nose, limited to breakdown of skin (CMS/HCC) Diverticulosis Primary hypertension Insomnia Cough in adult patient Cough Influenza B Persistent cough for 3 weeks or longer Current Outpatient Medications on File Prior to Visit Medication Sig Dispense Refill benzonatate (Tessalon Perles) 100 MG capsule Take 1 capsule (100 mg) by mouth if needed in the morning, at noon, and at bedtime for cough. Do not crush or chew. 20 capsule 0 Diclofenac Sodium 1 % gel Apply 1 Dose topically 3 times daily. - Apply externally glucosamine-chondroitin 500-400 MG tablet Take 1 tablet by mouth 3 times daily. ipratropium (Atrovent) 0.06 % nasal spray INSTILL 2 SPRAYS EACH NOSTRIL TWICE A DAY NEEDED RHINORRHEA, THAI 15 mL 1 terbinafine (LamISIL AT) 1 % cream Apply topically 2 times daily. 42 g 0 triamcinolone (Kenalog) 0.5 % ointment Apply topically 2 times daily. 60 g 0 [DISCONTINUED] amLODIPine (Norvasc) 5 MG tablet Take 1 tablet (5 mg) by mouth Once per day. 90 tablet 1 [DISCONTINUED] doxepin (SINEquan) 10 MG capsule Take 1 capsule (10 mg) by mouth at bedtime. 90 capsule 1 [DISCONTINUED] lisinopril 5 MG tablet Take 1 tablet (5 mg) by mouth Once per day. 30 tablet 11 No current facility-administered medications on file prior to visit. Review of Systems Constitutional: Negative for chills, diaphoresis, fatigue and malaise/fatigue. Eyes: Negative for blurred vision. Respiratory: Negative for shortness of breath. Cardiovascular: Negative for chest pain, orthopnea and PND. Gastrointestinal: Negative for abdominal pain, anal bleeding and blood in stool. Musculoskeletal: Negative for gait problem, joint swelling and neck pain. Objective BP 134/81 (BP Location: Left arm, Patient Position: Sitting, BP Cuff Size: Adult long) Pulse 68 Temp 98 ??F (36.7 ??C) (Oral) Resp 20 Ht 5' 9 (1.753 m) Wt 233 lb (106 kg) SpO2 96% BMI 34.41 kg/m?? Physical Exam Constitutional: General: He is not in acute distress. Appearance: Normal appearance. He is not ill-appearing, toxic-appearing or diaphoretic. Cardiovascular: Rate and Rhythm: Normal rate. Pulmonary: Effort: Pulmonary effort is normal. Neurological: Mental Status: He is alert. Assessment/Plan Diagnoses and all orders for this visit: Primary hypertension Comments: BP is at goal no change for now DASH diet Orders: - lisinopril 5 MG tablet; Take 1 tablet (5 mg) by mouth Once per day. - amLODIPine (Norvasc) 5 MG tablet; Take 1 tablet (5 mg) by mouth Once per day. Anxiety Comments: Psychotherapy recommended for now Contact the office is interested in getting pharmacotherapy Orders: - doxepin (SINEquan) 10 MG capsule; Take 1 capsule (10 mg) by mouth at bedtime. Other depression Comments: Pt declines medication. Declines suicidal ideation/homicidal ideation Orders: - Referral to Behavioral Health; Future - doxepin (SINEquan) 10 MG capsule; Take 1 capsule (10 mg) by mouth at bedtime. Gross hematuria Comments: Pt reports 1 week h/o gross hematuria w/ left flank pain Orders: - Urinalysis, Complete, with Reflex to Culture; Future - Basic Metabolic Panel; Future Primary hypertension Comments: Uncontrolled Continue Norvasc 5 mg once a day Start lisinopril 5 mg once a day Follow-up 2 weeks for BP check Orders: - lisinopril 5 MG tablet; Take 1 tablet (5 mg) by mouth Once per day. - amLODIPine (Norvasc) 5 MG tablet; Take 1 tablet (5 mg) by mouth Once per day. documented in this encounter Plan of Treatment Pending Results Name Type Priority Associated Diagnoses Date /Time Basic Metabolic Panel Lab Routine Gross hematuria 11/02/2024 4:26 PM EDT Scheduled Referrals Name Type Priority Associated Diagnoses Order Schedule Referral to Behavioral Health Outpatient Referral Routine Other depression Expected: 11/02/2024 (Approximate), Expires: 11/02/2025 documented as of this encounter Procedures Procedure Name Priority Date/Time Associated Diagnosis Comments URINALYSIS, COMPLETE, WITH REFLEX TO CULTURE Routine 11/02/2024 4:30 PM EDT Gross hematuria BASIC METABOLIC PANEL Routine 11/02/2024 4:26 PM EDT Gross hematuria documented in this encounter Results * (ABNORMAL) Urinalysis, Complete, with Reflex to Culture (11/02/2024 4:30 PM EDT) Color Urine Yellow [facility] Appearance Urine Clear [facility] PH 6.0 5.0 - 9.0 [facility] Glucose Urine UA Negative Negative mg/dL [facility] Urine Blood Small (1+)(A) Negative [facility] Specific [place] - Urine 1.025 1.005 - 1.025 [facility] Urine Protein Negative Neg-Trace mg/dL [facility] Urine Ketones Negative Negative mg/dL [facility] Nitrite Urine Negative Negative [facility] Leukocyte Esterase Urine Negative Negative [facility] RBC Urine 11-20(A) 0 - 2 /HPF [facility] Urine WBC 0-5 0 - 5 /HPF [facility] Urine Squamous Epithelial Cell 0-2 0 - 2 /HPF [facility] Urine Bacteria None Seen None Seen [facility] Hyaline Casts, Urine 0-2 0 - 2 /LPF [facility] Urine 11/02/2024 4:30 PM EDT 11/02/2024 6:18 PM EDT Narrative [facility] - 11/02/2024 6:46 PM EDT [id number], Clean Catch us Angel Rebolledo MD LAB URINE ORDERABLES Final Result [facility] [address] [place] [address] [phone] documented in this encounter Visit Diagnoses Diagnosis Primary hypertension- Primary Unspecified essential hypertension Anxiety Anxiety state, unspecified Other depression Gross hematuria documented in this encounter Additional Health Concerns Assessment Noted Time PHQ-9 Depression Total Score: 14 025 4:18 PM EDT documented as of this encounter Care Teams Radio Rigger Relationship Specialty Start Date End Date Kathleen Bustamante MD [address] [place] [address] PCP - General Family Medicine 05/22/23 documented as of this encounter
--- OUTSIDE RECORDS SUMMARY | 2024-11-02 19:23 | XMS_ITS | Encounter Summary ---
Author Organization [employer] Address [address] [facility] 7[address] [place] [address] Care Team Providers Care Kiln Car Unloader Name Role Phone Kathleen Bustamante MD Primary Care Provider [phone] Encounter Details Date Type Department Care Team (Latest Contact Info) Description 10/19/2024 Travel Social History Tobacco Use Types Packs/Day [...] documented as of this encounter Care Teams Kiln Car Unloader Relationship Specialty Start Date End Date Kathleen Bustamante MD [address] [place] [address] PCP - General Family Medicine 05/22/23 documented as of this encounter
--- OUTSIDE RECORDS SUMMARY | 2024-11-02 19:23 | XMS_ITS | Encounter Summary ---
Author Organization [employer] Address [address] [facility] 7[address] [place] [address] Care Team Providers Care Veneer Manufacturer Name Role Phone Kathleen Bustamante MD Primary Care Provider [phone] Reason for Visit * Reason Comments Blood Pressure Check Encounter Details Date Type Department Care Team (Latest Contact Info) Description 10/19/2024 3:00 PM EST Clinical Support [facility] [address] [place], [place] [phone] Rosa M Guzmán RN Primary hypertension Social History Tobacco Use Types [...] the past 12 months, has t he [employer], gas, oil or water company threatened to [...] Sign Reading Time Taken Comments Blood Pressure 148/92 10/19/2024 3:04 PM EST Pulse 69 10/19/2024 3:02 PM EST Temperature 36.1 ??C (97 ??F) 10/19/2024 3:02 PM EST Respiratory Rate 18 10/19/2024 3:02 PM EST Oxygen Saturation 97% 10/19/2024 3:02 PM EST Inhaled Oxygen Concentration - - Weight 104 kg (229 lb) 10/19/2024 3:02 PM EST Height - - Body Mass Index 33.82 10/05/2024 3:28 PM EST documented in this encounter Progress Notes * Rsoa M Guzmán, RN - 10/19/2024 3:00 PM EST SUBJECTIVE: Tenzin Davis is a 49 y.o. year old male who presents for nurse visit blood pressurecheck. Recommendations at last visit were continue with Norvasc 5mg once daily, start lisinopril 5mg once daily and follow up for BP in 2 weeks. Today, Tenzin does not complain of any blurred vision, shortness of breath, chest pain. Tenzin does complain of dizziness and headaches at times. Tenzin reports 3-4 alcoholic beveragesper week, beer, consumes soda once every 2 weeks, 1 cup of coffee a day, and 4 water bottles daily.Denies smoking, reports cigarette cravings quit 6 weeks ago, declined wanting nicotine supplement. Tenzin states not checking BP daily or documenting readings, reported taking BP medication today. Tenzin states diet consists of steak, fried chicken, white rice, take out, and juice. Tenzin endorses feeling high levels of stress related to work, home, and health. Current Outpatient Medications Medication Sig Dispense Refill amLODIPine (Norvasc) 5 MG tablet Take 1 tablet (5 mg) by mouth Once per day. 90 tablet 1 benzonatate (Tessalon Perles) 100 MG capsule Take 1 capsule (100 mg) by mouth if needed in the morning, at noon, and at bedtime for cough. Do not crush or chew. 20 capsule 0 Diclofenac Sodium 1 % gel Apply 1 Dose topically 3 times daily. - Apply externally doxepin (SINEquan) 10 MG capsule Take 1 capsule (10 mg) by mouth at bedtime. 90 capsule 1 glucosamine-chondroitin 500-400 MG tablet Take 1 tablet by mouth 3 times daily. ipratropium (Atrovent) 0.06 % nasal spray INSTILL 2 SPRAYS EACH NOSTRIL TWICE A DAY NEEDED RHINORRHEA, POLISH 15 mL 1 lisinopril 5 MG tablet Take 1 tablet (5 mg) by mouth Once per day. 30 tablet 11 terbinafine (LamISIL AT) 1 % cream Apply topically 2 times daily. 42 g 0 triamcinolone (Kenalog) 0.5 % ointment Apply topically 2 times daily. 60 g 0 No current facility-administered medications for this visit. Patient Active Problem List Diagnosis Date Noted Persistent cough for 3 weeks or longer 09/21/2024 Cough 09/14/2024 Influenza B 09/14/2024 Cough in adult patient 09/07/2024 Diverticulosis 08/30/2024 Primary hypertension 08/30/2024 Insomnia 08/30/2024 Skin ulcer of nose, limited to breakdown of skin ([facility]) 04/01/2024 Class 1 obesity 05/22/2023 Elevated blood pressure reading 07/10/2023 Cat dander, Codeine, Dog epithelium, and Dust mite extract Tenzin Davis does confirm adherence to medications for hypertension listed above. Tenzin states that when he has a headache and checks his blood pressure, if it is high he states taking a second dose of Lisinopril 5mg. Confirmed medications taken today [x] Recent emergency room or hospitalizations: No Social History Substance and Sexual Activity Drug Use Never BP Readings from Last 4 Encounters: 10/05/24 (!) 167/87 09/21/24 (!) 160/100 09/14/24 (!) 146/95 09/07/24 (!) 143/89 Pulse Readings from Last 4 Encounters: 10/05/24 80 09/14/24 89 09/07/24 81 08/30/24 76 OBJECTIVE: Tenzin is currently prescribed Lisinopril and Amlodipine for hypertension. ASSESSMENT: Patient is not within goal blood pressure of <140/90 or <130/80 Blood Pressure L Arm - 150/92. R Arm-148/92 HR 69 RR 18 O2 Sat 97% Temp 97.0F PLAN: Tenzin Davis advised to continue taking medications as directed and reinforcement of lifestyle modifications including low sodium diet and exercise were reviewed. Tenzin Davis agreeable to plan discussed at today's visit. Advised patient that information obtained during visit will be forwarded to the provider and will call to let them know about any updates to plan of care. Patient verbalized understanding. Info forwarded to covering provider for review. Rosa M Guzmán RN documented in this encounter Plan of Treatment Not on file documented as of this encounter Visit Diagnoses Diagnosis Primary hypertension Unspecified essential hypertension documented in this encounter Additional Health Concerns Assessment Noted Time PHQ-9 Depression Total Score: 8 05/22/20 23 11:01 AM EDT documented as of this encounter Care Teams Veneer Manufacturer Relationship Specialty Start Date End Date Kathleen Bustamante MD [address] [place] [address] PCP - General Family Medicine 05/22/23 documented as of this encounter
--- OUTSIDE RECORDS SUMMARY | 2024-11-02 19:23 | XMS_ITS | Encounter Summary ---
Author Organization [employer] Address [address] [facility] 7 [place] [address] Care Team Providers Care Routing Machine Operator Name Role Phone Kathleen Bustamante MD Primary Care Provider [phone] Reason for Visit * Reason Onset Date Comments PCP Contact 10/28/2024 Encounter Details Date Type Department [facility] Team ([facility] Description 10/28/2024 Telephone [facility] [address] [place], [place] [phone] Angel Rebolledo MD [address] [place] [address] PCP Contact Social History Tobacco Use Types Packs/Day Years [...] AM EDT documented as of this encounter Miscellaneous Notes * Telephone Encounter - Rosa M Guzmán RN - 10/28/2024 3:53 PM EST TC to pt per provider request to assess for need of work abscess excuse extension. Pt stated havingnot returned to work yet, still complaining of symptoms. Pt states still has symptoms of headaches,nausea at times. Pt denies shortness of breath, chest pain, or blurred vision. Pt reported trackingBP at home and systolic BP has ranged from 140-170 this week. Pt reported BP reading was 146/91 today prior to taking medications. Pt stated taking medications as prescribed, stated was concerned that kidneys may be having function problems due to increased urination and frequency. Pt denies burning with urination or inability to empty bladder. Pt verbalized feeling anxious and stressed with medical problems and with missing work. Pt advised that no sick visits currently available this week andadvised to go to [facility] if still having symptoms and needing work excuse note extension. Pt declined and asked for appointment with PSYCHIATRIC office. Appointment scheduled with pt for 11/02/24 at 3:45pm. Instructed pt if appointment cannot be kept to call office, and instructed pt that [facility] is available if ptfeels need to be seen sooner. Pt verbalized understanding and agreement with plan. Routing message to provider for review. documented in this encounter Plan of Treatment Not on file documented as of this encounter Visit Diagnoses Not on filedocumented in this encounter Additional Health Concerns Assessment Noted Time PHQ-9 Depression Total Score: 8 09/28/20 23 11:01 AM EDT documented as of this encounter Care Teams Routing Machine Operator Relationship Specialty Start Date End Date Kathleen Bustamante MD [address] [place] [address] PCP - General Family Medicine 05/22/23 documented as of this encounter
--- OUTSIDE RECORDS SUMMARY | 2024-11-02 19:23 | XMS_ITS | Encounter Summary ---
Author Organization [employer] Address [address] [facility] [address]t [place] [address] Care Team Providers Care Environmental Monitoring Technician Name Role Phone Kathleen Bustamante MD Primary Care Provider [phone] Encounter Details Date Type Department Care Team ([facility] Contact Info) Description 09/29/2024 Orders Only [facility] [address] [place], [place] [phone] Provider, MD Yuly Social History Tobacco Use Types Packs/Day Years [...] Priority Date/Time Associated Diagnosis Comments XR CHEST PA AND LATERAL Routine 09/29/2024 4:20 PM EST documented in this encounter Results * XR CHEST PA AND LATERAL (09/29/2024 4:20 PM EST) Anatomical Region Laterality Modality Radiographic Malinda ging us Historical Provider MD ALVARADO XR PROCEDURES Final R esult documented in this encounter Visit Diagnoses Not on filedocumented in this encounter Additional Health Concerns Assessment Noted Time PHQ-9 Depression Total Score: 8 05/22/20 11:01 AM EDT documented as of this encounter Care Teams Environmental Monitoring Technician Relationship Specialty Start Date End Date Kathleen Bustamante MD [address] [place] [address] PCP - General Family Medicine 05/22/23 documented as of this encounter
--- OUTSIDE RECORDS SUMMARY | 2024-11-02 19:23 | XMS_ITS | Encounter Summary ---
Author Organization [employer] Address [address] [place] [address] 7 [place] [address] Care Team Providers Care [employer] Name Role Phone Kathleen Bustamante MD Primary Care Provider [phone] Reason for Referral * Consultation (Routine) - Closed Specialty Diagnoses / Procedures Referred By Steve manriquez Referred To Contact Behavioral Health Diagnoses Anxiety Angel Rebolledo MD [address] [place] [address] Phone: tel: fax: Referral ID Status Reason Start Date Expiration Date V isits Requested Visits Authorized [id number] Closed Specialty Services Required 10/05/2024 10/05/2025 1 1 Encounter Details Date Type Department Care Team (Late st Contact Info) Description 10/05/2024 3:30 PM EST Office Visit [facility] [address] [place] [address] Angel Rebolledo MD [address] [place], [place] [phone] Primary hypertension (Primary Dx); Anxiety Social History Tobacco Use Types Packs/Day Years [...] Sign Reading Time Taken Comments Blood Pressure 167/87 10/05/2024 3:28 PM EST Pulse 80 10/05/2024 3:28 PM EST Temperature 36.6 ??C (97.9 ??F) 10/05/2024 3:28 PM ES T Respiratory Rate 14 10/05/2024 3:28 PM EST Oxygen Saturation 97% 10/05/2024 3:28 PM EST Inhaled Oxygen Concentration - - Weight 107 kg (235 lb 12.8 oz) 10/05/2024 3:28 P M EST Height 175.3 cm (5' 9 ) 10/05/2024 3:28 PM EST Body Mass Index 34.82 10/05/2024 3:28 PM EST documented in this encounter Progress Notes * Angel Rebolledo MD - 10/05/2024 3:30 PM EST Subjective Patient ID: Tenzin Davis is a 49 y.o. male who presents for No chief complaint on file.. HPI Note from triage reviewed: 49-year-old male presents for evaluation of elevated blood pressure at home. 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 The patient reports this morning he woke up with of mild throbbing discomfort in the left side of his neck that has been constant throughout the day, as well as a mild pressure-like headache and feeling off, tired, and foggy. He checked his blood pressure and found it to be elevated at 187/113 and he became extremely anxious. Patient was recently started on amlodipine for high blood pressure and he is very concerned about the long-term consequences of hy pertension and alcohol use, including stroke and chronic liver disease. He has had no visual changes, nausea or vomiting, difficulty speaking or walking, focal weakness or paresthesias. He denies chest pain or shortness of breath, and has had normal urine output. The history is confirmed. Patient is complaining of headache, right-sided chest wall pain, paresthesias of different parts of his body. He is also complaining of being very anxious given that he feels like he is being harassed by his job asking him to return when he feels overwhelmed by his health in general. Patient Active Problem List Diagnosis Class 1 obesity Elevated blood pressure reading Skin ulcer of nose, limited to breakdown of skin (CMS/HCC) Diverticulosis Primary hypertension Insomnia Cough in adult patient Cough Influenza B Persistent cough for 3 weeks or longer Current Outpatient Medications on File Prior to Visit Medication Sig Dispense Refill amLODIPine (Norvasc) 5 [...] daily. ipratropium (Atrovent) 0.06 % nasal spray 2 sprays each nostril bid prn rhinorrhea, ukrainian 15 mL 0 terbinafine (LamISIL AT) 1 % cream Apply topically 2 times daily. 42 g 0 triamcinolone (Kenalog) 0.5 % ointment Apply topically 2 times daily. 60 g 0 No current facility-administered medications on file prior to visit. Allergies Allergen Reactions Cat Dander Codeine Dog Epithelium Dust Mite Extract Review of Systems Constitutional: Negative for appetite change, chills and diaphoresis. Respiratory: Negative for cough, shortness of breath and stridor. Cardiovascular: Negative for leg swelling. Musculoskeletal: Positive for back pain. Neurological: Positive for numbness and headaches. Objective BP (!) 167/87 (BP Location: Left arm, Patient Position: Sitting, BP Cuff Size: Large adult) Pulse80 Temp 97.9 ??F (36.6 ??C) (Oral) Resp 14 Ht 5' 9 (1.753 m) Wt 235 lb 12.8 oz (107 kg) SpO2 97% BMI 34.82 kg/m?? Physical Exam Constitutional: General: He is not in acute distress. Appearance: Normal appearance. He is obese. He is not ill-appearing, toxic- appearing or diaphoretic. Cardiovascular: Rate and Rhythm: Normal rate. Pulmonary: Effort: Pulmonary effort is normal. Neurological: General: No focal deficit present. Mental Status: He is alert. Psychiatric: Mood and Affect: Mood is anxious. Judgment: Judgment normal. Assessment/Plan Diagnoses and all orders for this visit: Primary hypertension Comments: Uncontrolled Continue Norvasc 5 mg once a day Start lisinopril 5 mg once a day Follow-up 2 weeks for BP check Orders: - lisinopril 5 MG tablet; Take 1 tablet (5 mg) by mouth Once per day. Anxiety Comments: Patient has been on SSRIs in the past. Not interested in resuming an SSRI now. He is open to receiving psychotherapy. Denies suicidal ideation or homicidal ideation Given the fact that he is overwhelmed with his job he requests to get time off work to take care ofhis mental health Orders: - Referral to Behavioral Health; Future documented in this encounter Plan of Treatment Scheduled Referrals Name Type Priority Associated Diagnoses Order Schedule Referral to Behavioral Health Outpatient Referral Routine Anxiety Expected: 10/05/2024 (Approximate), Expires: 10/05/2025 documented as of this encounter Visit Diagnoses Diagnosis Primary hypertension- Primary Unspecified essential hypertension Anxiety Anxiety state, unspecified documented in this encounter Additional Health Concerns Assessment Noted Time PHQ-9 Depression Total Score: 8 05/22/20 11:01 AM EDT documented as of this encounter Care Teams Sports Management Internship Relationship Specialty Start Date End Date Kathleen Bustamante MD [address] [place] [phone] PCP - General Family Medicine 05/22/23 documented as of this encounter
--- OUTSIDE RECORDS SUMMARY | 2024-11-02 19:23 | XMS_ITS | Clinical Summary ---
Author Organization [employer] Address [address] [facility] 7t [place] [address] Care Team Providers Care Director [employer] Name Role Phone Kathleen Bustamante MD Primary Care Provider [phone] Allergies Active Allergy Reactions Criticality Noted Date Comments Cat Dander 03/03/2019 Codeine 04/02/2023 Dog Epithelium 03/03/2019 Dust Mite Extract 08/10/2024 Medications * This document contains information received from the source organization and may not represent a complete record from that organization. glucosamine-cho ndroitin 500-400 MG tablet Take 1 tablet by mouth 3 times daily. Active terbinafine (LamISIL AT) 1 % creamIndication s:Tinea pedis of both feet Apply topically 2 times daily. 42 g 05/22/20 23 Active triamcinolone (Kenalog) 0.5 % ointment Apply topically 2 times daily. 60 g 05/22/20 23 Active Diclofenac Sodium 1 % gel Apply 1 Dose topically 3 times daily. - Apply externally Active benzonatate (Tessalon Perles) 100 MG capsuleIndicati ons:Cough, unspecified type Take 1 capsule (100 mg) by mouth if needed in the morning, at noon, and at bedtime for cough. Do not crush or chew. 20 capsule 09/14/19 25 026 Active ipratropium (Atrovent) 0.06 % nasal sprayIndication s:Cough, unspecified type INSTILL 2 SPRAYS EACH NOSTRIL TWICE A DAY NEEDED [place]IN[place], CITIZEN [place] 15 mL 1 10/11/19 25 Active lisinopril 5 MG tabletIndicatio ns:Primary hypertension Take 1 tablet (5 mg) by mouth Once per day. 30 tablet 11/03/19 25 026 Active amLODIPine (Norvasc) 5 MG tabletIndicatio ns:Primary hypertension Take 1 tablet (5 mg) by mouth Once per day. 90 tablet 11/03/19 25 Active doxepin (SINEquan) 10 MG capsuleIndicati ons:Anxiety,Oth er depression Take 1 capsule (10 mg) by mouth at bedtime. 90 capsule 11/03/19 25 Active amLODIPine (Norvasc) 5 MG tablet Take 1 tablet (5 mg) by mouth Once per day. 90 tablet 1 08/30/19 25 025 Discontinued(R eorder (will not trigger notification to Pharmacy)) doxepin (SINEquan) 10 MG capsule Take 1 capsule (10 mg) by mouth at bedtime. 90 capsule 08/30/19 25 025 Discontinued(R eorder (will not trigger notification to Pharmacy)) ipratropium (Atrovent) 0.06 % nasal sprayIndication s:Cough, unspecified type 2 sprays each nostril bid prn rhinorrhea, khmer 15 mL 09/14/19 25 025 Discontinued lisinopril 5 MG tabletIndicatio ns:Primary hypertension Take 1 tablet (5 mg) by mouth Once per day. 30 tablet 10/05/19 025 Discontinued(R eorder (will not trigger notification to Pharmacy)) Active Problems Problem Noted Date Diagnosed Date Persistent cough for 3 weeks or longer Assessment & Plan (09/21/2024 11:19 AM EST): [...] recommended reduction of 20-30% of maintenance calories; mechanic assistant referral offered. Recommended to decrease soda and [...] recommended reduction of 20-30% of maintenance calories; mechanic assistant referral offered. Recommended to decrease soda and [...] tract infection will be prescribe Amoxicillin. Encounters * This document contains information received from the source organization and may not represent a complete record from that organization. Date Type Department Care Team Description 11/02/2024 3:45 PM EDT Office Visit [facility] [address] [place] [address] Angel Rebolledo MD Primary hypertension (Primary Dx); Anxiety; Other depression; Gross hematuria; Primary hypertension 11/02/2024 Travel 11/01/2024 Patient Outreach [facility] [address] [place] [address] Kathleen Bustamante MD Care Coordination ([facility] outreach for [facility] food + utilities and housing search-referral completed ) 10/28/2024 Telephone [facility] [address] [place] [address] Angel Rebolledo MD PCP Contact 10/19/2024 3:00 PM EST Clinical Support [facility] [address] [place] [address] Rosa M Guzmán RN Primary hypertension 10/19/2024 Travel 10/06/2024 Refill [facility] [address] [place] [phone] Rosa M Rincon MD Cough, unspecified type 10/05/2024 3:30 PM EST Office Visit [facility] [address] [place] [address] Angel Rebolledo MD Primary hypertension (Primary Dx); Anxiety 10/05/2024 Travel 09/29/2024 Psychiatric Only [facility] [address] [place] [phone] Yuly Martini MD 09/29/2024 Telephone [facility] [address] [place] [address] Kathleen Bustamante MD ER Follow-up 09/21/2024 11:20 AM EST Office Visit [facility] [address] [place] [phone] Rosa M Rnicon MD Persistent cough for 3 weeks or longer (Primary Dx); Primary hypertension 09/21/2024 Telephone [facility] [address] [place] [phone] Rosa M Rincon MD 09/14/2024 9:40 AM EST Office Visit [facility] [address] [place] [phone] Rosa M Rincon MD Cough, unspecified type (Primary Dx); Influenza B 09/07/2024 9:40 AM EST Office Visit [facility] [address] [place] [phone] Rosa M Rincon MD Cough in adult patient 09/07/2024 Travel 08/30/2024 1:00 PM EST Office Visit [facility] [address] [place] [address] Kathleen Bustamante MD Primary hypertension (Primary Dx); Diverticulosis; Screening due; Dietary counseling; Exercise counseling; Class 1 obesity with serious comorbidity and body mass index (BMI) of 34.0 to 34.9 in adult, unspecified obesity type; Insomnia, unspecified type 08/30/2024 Travel 08/20/2024 Patient Outreach [facility] [address] [place] [address] Kathleen Bustamante MD Pre-visit Planning ([facility] unable to reach [facility]) from Last 3 Months Immunizations Name Administration [...] Mass Index 34.41 11/02/2024 3:54 PM EDT Plan of Treatment Health Maintenance Due Date Last Done Comments CT Colonography 1975 FIT DNA/Cologuard 1975 FIT 1975 FOBT 1975 HIV Screening 1975 Sigmoidoscopy 1975 Family Planning (PISQ) 1990 Hepatitis C Screening 1993 Hepatitis B Vaccines (1 of 3 - 19+ 3-dose series) 1994 Influenza Vaccine (#1) 2025 Postp oned from 04/25/2024 (Patient Refused) Depression Monitoring (PHQ-9) 05/05/2025, 11/02/2024 Zoster Vaccines (1 of 2) 2025 Alcohol/Substance Use Screening 08/30/2025 08/30/2024 COVID-19 Vaccine (1 - 2023-2 5 season) 2025 Postponed from 04/25 (Patient Refused) Tobacco Screening 09/14/2025 09/14/2024 Depression Screening 11/02/2025 11/02/2024, 11/02/2024 SDOH Screening 11/02/2025 11/02/2024 DTaP/Tdap/Td Vaccines (2 - T d or Tdap) 03/03/2029 03/03/2019 Lipid Panel 11/02/2029 11/02/2024, 06/05/2023 Colonoscopy 04/30/2034 Colorectal Cancer Screening 04/30/2034 RSV [...] 5 Years) and At-Risk Patients (6 to 49) Years) Aged Out No longer eligible b [...] Routine 11/02/2024 4:26 PM EDT Gross hematuria LIPID PANEL, STANDARD Routine 11/02/2024 4:26 PM EDT Primary hypertension COMPREHENSIVE METABOLIC PANEL Routine 11/02/2024 4:26 PM EDT Primary hypertension CBC WITH AUTO DIFFERENTIAL Routine 11/02/2024 4:26 PM EDT Primary hypertension XR CHEST PA AND LATERAL Routine 09/29/2024 4:20 PM EST XR CHEST 2 VIEWS Routine 09/21/2024 11:3 [...] 9:51 AM EST Cough in adult patient from Last 3 Months Results * (ABNORMAL) Urinalysis, Complete, with Reflex to Culture (11/02/2024 4:30 PM EDT) Color Urine Yellow [facility] Appearance Urine Clear [facility] PH 6.0 5.0 - 9.0 [facility] Glucose Urine UA Negative Negative mg/dL [facility] Urine Blood Small (1+)(A) Negative [facility] Specific [place] - Urine 1.025 1.005 - 1.025 [facility] Urine Protein Negative Neg-Trace mg/dL [facility] Urine Ketones Negative Negative mg/dL [facility] Nitrite Urine Negative Negative [facility] Leukocyte Esterase Urine Negative Negative [facility] RBC Urine 11-20(A) 0 - 2 /HPF [facility] Urine WBC 0-5 0 - 5 /HPF [facility] Urine Squamous Epithelial Cell 0-2 0 - 2 /HPF [facility] Urine Bacteria None Seen None Seen [facility] Hyaline Casts, Urine 0-2 0 - 2 /LPF [facility] Urine 11/02/2024 4:30 PM EDT 11/02/2024 6:18 PM EDT Narrative [facility] - 11/02/2024 6:46 PM EDT [id number], Clean Catch us Angel Rebolledo MD LAB URINE ORDERABLES Final Result [facility] [address] [place], [place] [phone] * CBC auto differential (11/02/2024 4:26 PM EDT) White Blood Count 5.8 4.8 - 10.8 X10*3/uL [facility] Red Blood Count 4.71 4.60 - 5.80 X10*6/uL [facility] Hemoglobin 14.5 14.0 - 18.0 g/dl [facility] Hematocrit 43.2 42.0 - 52.0 % [facility] Mean Corpuscular Volume 91.7 80.0 - 98.0 fL [facility] Mean Corpuscular Hemoglobin 30.8 27.0 - 33.0 pg [facility] Mean Corpuscular HGB Conc 33.6 31.0 - 36.0 g/dl [facility] Red Cell Distribution Width 12.1 11.0 - 16.0 % [facility] Platelet Count 289 160 - 400 X10*3/uL [facility] Mean Platelet Volume 9.5 9.4 - 12.4 fL [facility] Neutrophils Percent Auto 50.8 45 - 73 % [facility] Imm Gran Pct Auto 0.0 0.0 - 0.4 % [facility] Lymphocytes Percent Auto 37.7 20 - 40 % [facility] Monocytes Percent Auto 8.6 2 - 11 % [facility] Eosinophils Percent Auto 2.2 0 - 4 % [facility] Basophils Percent Auto 0.7 0 - 2 % [facility] NRBC Pct Auto 0.0 0.0 - 0.2 /100WBC [facility] Neutrophils Absolute Auto 2.9 2.0 - 8.3 x10*3/uL [facility] Imm Gran Abs Auto 0.00 0.00 - 0.03 X10*3/uL [facility] Lymphocytes Absolute Auto 2.2 1.2 - 4.9 X10*3/uL [facility] Monocytes Absolute Auto 0.5 0.1 - 1.2 X10*3/uL [facility] Eosinophils Absolute Auto 0.1 0.0 - 0.4 X10*3/uL [facility] Basophils Absolute Auto 0.0 0.0 - 0.2 X10*3/uL [facility] NRBC Abs Auto 0.000 0.0 - 0.012 X10*3/uL [facility] Blood Venous blood specimen / Unknown 11/02/2024 4:26 PM EDT 11/02/2024 6:30 PM EDT us Kathleen Bustamante MD LAB BLOOD ORDERABLES Final Re sult Performing Organization Address [facility]/ZIP Co de Phone Number [facility] [address] [place] [address] [phone] * (ABNORMAL) Lipid Panel, Standard (11/02/2024 4:26 PM EDT) Triglycerides 161(H) <150 mg/dL [facility] Comment:Desirable Triglyceri de: less than 150 mg/dLBorderline High Triglyceride 150-199 mg/dLHigh Triglyceride: 200-499 mg/dLVery High Triglyceride: greater than or equal to 5OO mg/dL Cholesterol 267(H) <200 mg/dL [facility] Comment:Desirable Cholestero l: less than 200 mg/dLBorderline High Cholesterol: 200-239 mg/dLHigh Cholesterol: greater than 239 mg/dL LDL Cholesterol Calculated 180(H) <100 mg/dL [facility] Comment:Desirable LDL: less than 100 mg/dLNear Optimal/Above Optimal LDL: 110- 129 mg/dLBorderline High LDL: 130-159 mg/dLHigh LDL: 160-189 mg/dLVery High LDL: greater than or equal to 190 mg/dL HDL Cholesterol 55 >40 mg/dL [facility] Comment:Desirable HDL: great er than 40 mg/dL Note: This HDL assay may give artificially low results in patients with liver disease. Blood Venous blood specimen / Unknown 11/02/2024 4:26 PM EDT 11/02/2024 6:30 PM EDT us Kathleen Bustamante MD LAB BLOOD ORDERABLES Final Re sult Performing Organization Address City/[facility]/ZIP Co de Phone Number [facility] [address] [place] [address] [phone] * (ABNORMAL) Comprehensive Metabolic Panel (11/02/2024 4:26 PM EDT) Sodium 141 135 - 145 mmol/L [facility] Potassium 3.8 3.3 - 5.1 mmol/L [facility] Chloride 105 96 - 108 mmol/L [facility] Carbon Dioxide 26 22 - 29 mmol/L [facility] Anion Gap 14 12 - 20 [facility] Urea Nitrogen (BUN) 13 9 - 16 mg/dL [facility] Creatinine, Serum 0.93 0.5 - 1.4 mg/dL [facility] Estimated Glomerular Filt Rate >60 [facility] Comment:Chronic Kidney Disea se: Estimated GFR < 60 mL/min/1.05q6Azbpye Kidney Disease: Estimated GFR < 15 mL/min/1.73m2 Glucose 89 60 - 115 mg/dL [facility] Calcium 9.4 8.4 - 10.2 mg/dL [facility] Bilirubin, Total 0.4 0.0 - 1.0 mg/dL [facility] Aspartate Amino Transferase 23 5 - 37 U/L [facility] Alanine Aminotransferase 32 0 - 40 U/L [facility] Total Protein 8.1(H) 6.5 - 8.0 g/dL [facility] Albumin Level 4.7 3.5 - 5.0 g/dL [facility] Alkaline Phosphatase 73 39 - 117 U/L [facility] Blood Venous blood specimen / Unknown 11/02/2024 4:26 PM EDT 11/02/2024 6:30 PM EDT us Kathleen Bustamante MD LAB BLOOD ORDERABLES Final Re sult [facility] [address] [place] [address] [phone] * XR CHEST PA AND LATERAL (09/29/2024 4:20 PM EST) Anatomical Region Laterality Modality Radiographic Malinda ging us Historical Provider IMG XR PROCEDURES Final R esult * XR Chest 2 Views (09/21/2024 11:33 AM EST) Anatomical Region Laterality Modality Chest Radiographic Malinda ging 09/21/2024 11:3 3 AM EST Narrative 09/21/2024 12:08 PM EST ?[facility] ?[address] ?[place] [address] ?XRay Report ? Signed ? Patient: Tenzni Davis ?MR#: [id number] ?? [id number] ? : 1975 ?Acct:[id number] ? Age/Sex: 49 / M ?ADM Date: 09/21/24 ? Loc: HO.HHCX ? Attending Dr: Rosa M Rincon MD ? Ordering Physician: Rosa M Rincon MD ?? Date of Service: 09/21/24 ?? Procedure(s): XR chest 2V ?? Accession Number(s): [id number] ? cc: Rosa M Rincon MD ? [...] DD/ 1133 ? TD/TT: 09/21/24 1155 ? Dinkey Driver: MSM ? Procedure Note Magdaleno, Image - 09/21/[address] [address] XRay Report Signed Patient: Becky Davis#: [id number] : 1975Acct:[id number] Age/Sex: 49 / MADM Date: 09/21/24 Loc: HO.HHCX Attending Dr: Rosa M Rincon MD Ordering Physician: Rosa M Rincon MD Date of Service: 09/21/24 Procedure(s): XR chest 2V Accession Number(s): [id number] cc: Rosa M Rincon MD EXAMINATION: XR CHEST CLINICAL INFORMATION: chornic cough COMPARISON: None available. TECHNIQUE: 2 views of the chest were obtained. FINDINGS: No significant abnormality is noted involving the heart, lungs, mediastinum, bony thorax or soft tissues. XR/XR chest 2V IMPRESSION: Unremarkable chest exam. Electronically signed by: Joseph García MD 09/21/2024 12:06 PM EST RP Dictated By: Joseph García MD Signed By: <Electronically signed by Joseph García MD in OV> 09/21/24 1206 DD/ 1133 TD/TT: 09/21/24 1155 Dinkey Driver: [facility] Rosa M Rincon MD IMG XR PROCEDURES Final Re sult * (ABNORMAL) Influenza B (ID NOW Rapid Molecular) (09/14/2024 9:49 AM EST) Only the most recent of2 resultswithin the time period is included. Influenza B Positive( A) Negative, Indeterminate [facility] Swab 09/14/2024 9:49 AM EST Rosa M Rincon MD POINT OF CARE TEST ENTER/E DIT ORDERABLES Final Result [facility] [address] [place] [phone] * Influenza A (ID NOW Rapid Molecular) (09/14/2024 9:49 AM EST) Only the most recent of2 resultswithin the time period is included. Influenza A Negative Negative, Indeterminate [facility] Swab 09/14/2024 9:49 AM EST Rosa M Rincon MD POINT OF CARE TEST ENTER/E DIT ORDERABLES Final Result [facility] [address] [place] [address] [phone] * POCT Rapid COVID Ag (09/14/2024 9:49 AM EST) Only the most recent of2 resultswithin the time period is included. Rapid COVID Ag Negative Swab 09/14/2024 9:49 AM EST us Rosa M Rincon MD POINT OF CARE TEST ENTER/E DIT ORDERABLES Final Result from Last 3 Months Insurance [facility] [employer] Care Teams Director [employer] Relationship Specialty Start Date End Date Kathleen Bustamante MD [address] [place] [address] PCP - General Family Medicine 05/22/23
--- OUTSIDE RECORDS SUMMARY | 2024-11-02 19:23 | XMS_ITS | Encounter Summary ---
Author Organization [employer] Address [address] [facility] 7[address] [place] [address] Care Team Providers Care Ivory Carver Name Role Phone Kathleen Bustamante MD Primary Care Provider [phone] Encounter Details Date Type Department Care Team (Latest Contact Info) Description 10/05/2024 Travel Social History Tobacco Use Types Packs/Day [...] documented as of this encounter Care Teams Ivory Carver Relationship Specialty Start Date End Date Kathleen Bustamante MD [address] [place] [address] PCP - General Family Medicine 05/22/23 documented as of this encounter
--- OUTSIDE RECORDS SUMMARY | 2024-11-02 19:23 | XMS_ITS | Clinical Summary ---
Author Organization Patient Business Ser [facility] Address [address] [place] [address] Care Team Providers Care Tank Tester Name Role Phone Crow Armijo MD Primary Care Provider [phone] Allergies Active Allergy Reactions Criticality Noted Date Comments Cat Dander 08/10/2024 Codeine 08/10/2024 Dog Dander 08/10/2024 House Dust 08/10/2024 Medications diclofenac (VOLTAREN) 1 % topical gel Apply 1 Dose topically 3 times daily. - Apply externally Active glucosamine/cho ndro ingram A/C/Mn (GLUCOSAMINE-CH ONDROIT-VIT C-MN ORAL) Take by mouth. 1500 Complx [...] Recorded Sex Assigned at Not on file Legal Sex Male 4:54 PM EDT Gender Identity Not on file Sexual Orientation [...] patient's age to complete this topic Meningococcal B Vacine Aged Out No lo nger eligible based on patient's age to complete [...] Maintenance Results * (ABNORMAL) Lipid panel (10/01/2019) [facility] LDL/HDL Ratio 4 0 - 4 Triglycerides 109 0 - 150 mg/dL Cholesterol 213(A) 0 - 200 mg/dL HDL 59 >=40 mg/dL LDL Cholesterol 133(A) 0 - 100 mg/dL Blood Venous blood specimen / Unknown Historical Provider LAB BLOOD ORDERABLES Sherin l Result * HIV Screening (03/29/2016) [facility] HIV Screening Abstracted [facility] Provider HEALTH MAINTENANCE Final Result * Hepatitis C Screening (03/29/2016) [facility] Hepatitis C Screening Abstracted [facility] Provider HEALTH MAINTENANCE Final Result from Last 3 Months or Most Recently Relevant to Health Maintenance Care Teams Tank Tester Relationship Specialty Start Date End Date Crow Armijo MD [address] [place] [phone] PCP - General Internal Medicine 02/24/19
--- OUTSIDE RECORDS SUMMARY | 2024-11-02 19:23 | XMS_ITS | Encounter Summary ---
Author Organization [employer] Address [address] [facility] 7t [place] [address] Care Team Providers Care Rn Intensive Care Unit Name Role Phone Kathleen Bustamante MD Primary Care Provider [phone] Encounter Details Date Type Department Care Team (Latest Contact Info) Description 11/02/2024 Travel Social History Tobacco Use Types Packs/Day [...] housing situation today? I have mandyrk lawson 11/02/[address] you [...] documented as of this encounter Care Teams Rn Intensive Care Unit Relationship Specialty Start Date End Date Kathleen Bustamante MD [address] [place] [address] PCP - General Family Medicine 05/22/23 documented as of this encounter
[2024-11-02 19:33] LABS: TSH reflex Free T4 0.95 uIU/mL (0.32-4.0)
== END 2024-11-02 16:22 | disposition home or self-care (01) ==
LOC: HO.CHCLDS 16:21
PROVIDERS: Family Medicine; Visit Provider Internal Medicine
DX: R31.0 Gross hematuria (principal); I10 Essential (primary) hypertension
CPT/HCPCS: 36415; 80048; 80053; 80061; 81001; 84443; 85025

== ENCOUNTER 2024-11-25 15:56 | Outpatient (REF) | payer OTHER, SELFPAY ==
--- NOTE | ~2024-11-25 | US_ITS ---
CLINICAL HISTORY: Hematuria US Renal Comparison: None Findings: Right kidney normal size and echotexture, 12.6 cm length. Left kidney normal size and echotexture, 13.1 cm length. No collecting system dilatation of either kidney. Normal color Doppler. IMPRESSION: 1. Normal kidneys. This document has been electronically signed by: Timothy Thrasher MD on 11/26/2024 09:12:54
--- OUTSIDE RECORDS SUMMARY | 2024-11-25 17:02 | XMS_ITS | Clinical Summary ---
Author Organization [employer] Address [address] [facility] 7t [place] [address] Care Team Providers Care Steel Roller Name Role Phone Kathleen Bustamante MD Primary Care Provider Allergies Active Allergy Reactions Criticality Noted Date [...] EACH NOSTRIL TWICE A DAY NEEDED RHINORRHEA, MAURITIAN 15 mL 1 10/11/19 25 Active lisinopril [...] by mouth Once per day. 90 tablet 08/30/19 25 025 Discontinued(R eorder (will not trigger notification to Pharmacy)) doxepin (SINEquan) 10 MG capsule Take 1 capsule (10 mg) by mouth at bedtime. 90 capsule 08/30/19 25 025 Discontinued(R eorder (will not trigger notification to Pharmacy)) lisinopril 5 MG tabletIndicatio ns:Primary hypertension Take 1 tablet (5 mg) by mouth Once per day. 30 tablet 10/05/19 25 025 Discontinued(R eorder (will not trigger notification to Pharmacy)) Active Problems Problem Noted Date Diagnosed Date Moderate episode of recurrent major depressive d isorder 11/15/2024 BLANCO (generalized anxiety disorder) 11/15/2024 Assessment & Plan (11/15/2024 2:57 PM EDT): During IBH Consult Tenzin presenting with depressed mood, crying spells , irritable mood, loss of interests/pleasure , sense of isolation/loneliness , changes in sleep difficulty falling asleep, difficulty staying asleep , sleeping too much, and patient reported it varies, psychomotor agitation, fatigue/loss of energy, worthlessness, difficulty concentrating, excessive worry/anxiety, difficulty controlling worry, anxiety/worry associated to restlessness and/or feeling keyed-up/On edge , easily fatigued , difficulty concentrating and/or mind going blank , irritability, muscle tension , and sleep disturbance difficulty falling asleep, difficulty staying asleep , and sleeping too much, Fear , and sense of dread , Flashbacks, Intrusive trauma memories and thoughts, Nightmares/night terrors, Hypervigilance, Increased startle response, Fear and distrust in relationships, Isolation from normal social supports, and Difficulty with crowds, and patient reported at times he chad with alcohol, in regard to Alcohol; for a period of 6-12 mo, for most or all symptoms in the context of fear of dying, concern about health issues, stress relationship with , trust issues and financial instability. PLAN: (check all that apply) New/Additional Services needed Off-site services for Behavioral Health Integration Plan External OP therapy referral Patient Self Plan Patient to utilize skills provided in intervention , Patient to reach out to [facility] team as needed, and Patient to engage in OP therapy PTSD (post-traumatic stress disorder) 11/15/2024 Alcohol use 11/15/2024 Persistent cough for 3 weeks or longer [...] recommended reduction of 20-30% of maintenance calories; group counselor referral offered. Recommended to decrease soda and [...] recommended reduction of 20-30% of maintenance calories; group counselor referral offered. Recommended to decrease soda and [...] organization. Date Type Department Care Team Description 11/09/2024 Telephone [facility] [address] [place] [phone] Kathleen Bustamante MD 11/03/2024 Telephone [facility] [address] [place] [phone] Kathleen Bustamante MD 11/03/2024 Orders Only [facility] MEDICINE [address] [place] [address] Angel Rebolledo MD Gross hematuria (Primary Dx) 11/02/2024 3:45 PM EDT Office Visit [facility] [address] [place], [place] [phone] Angel Rebolledo MD Primary hypertension (Primary Dx); Anxiety; Other depression; Gross hematuria; Primary hypertension 11/02/2024 Travel 11/01/2024 Patient Outreach [facility] [address], [place] [phone] Kathleen Bustamante MD Care Coordination ([facility] outreach for [facility] food + utilities and housing search-referral completed ) 10/28/2024 Telephone [facility] [address] [place], [place] [phone] Angel Rebolledo MD PCP Contact; Results 10/19/2024 3:00 PM EST Clinical Support [facility] [address] [place], [place] [phone] Rosa M Guzmán RN Primary hypertension 10/19/2024 Travel 10/06/2024 Refill [facility] [address] [place] [address] [phone] Rosa M Rincon MD Cough, unspecified type 10/05/2024 3:30 PM EST Office Visit [facility] [address] [place] [address] Angel Rebolledo MD Primary hypertension (Primary Dx); Anxiety 10/05/2024 Travel 09/29/2024 Orders Only [facility] [address] [place] [phone] ProviderYuly MD 09/29/2024 Telephone [facility] [address] [place] [address] Kathleen Bustamante MD ER Follow-up 09/21/2024 11:20 AM EST Office Visit [facility] [address] [place] [address] Rosa M Rincon MD Persistent cough for 3 weeks or longer (Primary Dx); Primary hypertension 09/21/2024 Telephone [facility] [address] [place] [address] Rosa M Rincon MD 09/14/2024 9:40 AM EST [facility] [address] [address] Rosa M Rincon MD Cough, unspecified type (Primary Dx); Influenza B 09/07/2024 9:40 AM EST [facility] [address] [address] Rosa M Rincon MD Cough in adult patient 09/07/2024 Travel 08/30/2024 1:00 PM EST Office Visit [facility] [address] [place] [address] [phone] Kathleen Bustamante MD Primary hypertension (Primary Dx); Diverticulosis; Screening due; Dietary counseling; Exercise counseling; Class 1 obesity with serious comorbidity and body mass index (BMI) of 34.0 to 34.9 in adult, unspecified obesity type; Insomnia, unspecified type 08/30/2024 Travel from Last 3 Months Immunizations Name Administration Dates Next Due Tdap 03/03/2019 Social History Tobacco Use Types Packs/Day Years Used Date Smoking Tobacco: Never Passive Smoke Exposure: Never Smokeless Tobacco: Never Tobacco Cessation:Counseling Given: Not Answered Alcohol Use Standard Drinks/Week Comments Never 0 (1 standard drink = 0.6 oz pur e alcohol) Depression Answer Date Recorded Patient Health Questionnaire-9 Score 12 11/15/2024 Patient Health Questionnaire-9 Score 12 11/15/2024 Last PHQ-9: Questionnaire Data Not on file 0 11/15/2024 Housing Stability Answer Date Recorded What is [...] Answer Date Recorded Patient Health Questionnaire-2 Score 4 11/15/2024 Internet Access Answer Date Recorded Internet Access [...] from 04/25/2024 (Patient Refused) Depression Monitoring (PHQ-9) 05/18/2025, 11/15/2024 Zoster Vaccines (1 of 2) 2025 Alcohol/Substance Use Screening 08/30/2025 08/30/2024 COVID-19 Vaccine (1 - 2023-2 5 season) 2025 Postponed from 04/25 (Patient Refused) Tobacco Screening 09/14/2025 09/14/2024 SDOH Screening 11/02/2025 11/02/2024 Depression Screening 11/15/2025 11/15/2024, 11/15/2024 DTaP/Tdap/Td Vaccines (2 - T d or [...] Routine 11/02/2024 4:26 PM EDT Gross hematuria TSH W/REFLEX TO FT4 Routine 11/02/2024 4 :26 PM EDT Primary hypertension LIPID PANEL, STANDARD Routine 11/02/2024 4:26 PM [...] (11/02/2024 4:30 PM EDT) Color Urine Yellow [facility] Appearance Urine Clear [facility] PH 6.0 5.0 - 9.0 [facility] Glucose Urine UA Negative Negative mg/dL [facility] Urine Blood Small (1+)(A) Negative [facility] Specific [place] - Urine 1.025 1.005 - 1.025 [facility] Urine Protein Negative Neg-Trace mg/dL [facility] Urine Ketones Negative Negative mg/dL [facility] Nitrite Urine Negative Negative [facility] Leukocyte Esterase Urine Negative Negative [facility] RBC Urine 11-20(A) 0 - 2 /HPF [facility] Urine WBC 0-5 0 - 5 /HPF [facility] Urine Squamous Epithelial Cell 0-2 0 - 2 /HPF [facility] Urine Bacteria None Seen None Seen [facility] Hyaline Casts, Urine 0-2 0 - 2 /LPF [facility] Urine 11/02/2024 4:30 PM EDT 11/02/2024 6:18 PM EDT Narrative [facility] - 11/02/2024 6:46 PM EDT [id number], Clean Catch us Angel Rebolledo MD LAB URINE ORDERABLES Final Result [facility] [address] [place] [phone] * TSH W/Reflex to FT4 (11/02/2024 4:26 PM EDT) TSH reflex Free T4 0.95 0.32 - 4.0 uIU/mL [facility] Blood Venous blood specimen / Unknown 11/02/2024 4:26 PM EDT 11/02/2024 6:30 PM EDT us Kathleen Bustamante MD LAB BLOOD ORDERABLES Final Re sult [facility] [address] [place], [place] [phone] * CBC auto differential (11/02/2024 4:26 PM EDT) White Blood Count 5.8 4.8 - 10.8 X10*3/uL [facility] Red Blood Count 4.71 4.60 - 5.80 X10*6/uL [facility] Hemoglobin 14.5 14.0 - 18.0 g/dl [facility] Hematocrit 43.2 42.0 - 52.0 % [facility] Mean Corpuscular Volume 91.7 80.0 - 98.0 fL [facility] Mean Corpuscular Hemoglobin 30.8 27.0 - 33.0 pg [facility] Mean Corpuscular HGB Conc 33.6 31.0 - 36.0 g/dl [facility] Red Cell Distribution Width 12.1 11.0 - 16.0 % [facility] Platelet Count 289 160 - 400 X10*3/uL [facility] Mean Platelet Volume 9.5 9.4 - 12.4 fL [facility] Neutrophils Percent Auto 50.8 45 - 73 % [facility] Imm Gran Pct Auto 0.0 0.0 - 0.4 % [facility] Lymphocytes Percent Auto 37.7 20 - 40 % [facility] Monocytes Percent Auto 8.6 2 - 11 % [facility] Eosinophils Percent Auto 2.2 0 - 4 % [facility] Basophils Percent Auto 0.7 0 - 2 % [facility] NRBC Pct Auto 0.0 0.0 - 0.2 /100WBC [facility] Neutrophils Absolute Auto 2.9 2.0 - 8.3 x10*3/uL [facility] Imm Gran Abs Auto 0.00 0.00 - 0.03 X10*3/uL [facility] Lymphocytes Absolute Auto 2.2 1.2 - 4.9 X10*3/uL [facility] Monocytes Absolute Auto 0.5 0.1 - 1.2 X10*3/uL [facility] Eosinophils Absolute Auto 0.1 0.0 - 0.4 X10*3/uL [facility] Basophils Absolute Auto 0.0 0.0 - 0.2 X10*3/uL [facility] NRBC Abs Auto 0.000 0.0 - 0.012 X10*3/uL [facility] Blood Venous blood specimen / Unknown 11/02/2024 4:26 PM EDT 11/02/2024 6:30 PM EDT us Kathleen Bustamante MD LAB BLOOD ORDERABLES Final Re sult [facility] [address] [place] [address] [phone] * (ABNORMAL) Lipid Panel, Standard (11/02/2024 4:26 PM EDT) Triglycerides 161(H) <150 mg/dL [facility] Comment:Desirable Triglyceri de: less than 150 mg/dLBorderline High Triglyceride 150-199 mg/dLHigh Triglyceride: 200-499 mg/dLVery High Triglyceride: greater than or equal to 5OO mg/dL Cholesterol 267(H) <200 mg/dL [facility] Comment:Desirable Cholestero l: less than 200 mg/dLBorderline High Cholesterol: 200-239 mg/dLHigh Cholesterol: greater than 239 mg/dL LDL Cholesterol Calculated 180(H) <100 mg/dL [facility] Comment:Desirable LDL: less than 100 mg/dLNear Optimal/Above Optimal LDL: 110- 129 mg/dLBorderline High LDL: 130-159 mg/dLHigh LDL: 160-189 mg/dLVery High LDL: greater than or equal to 190 mg/dL HDL Cholesterol 55 >40 mg/dL [facility] Comment:Desirable HDL: great er than 40 mg/dL Note: This HDL assay may give artificially low results in patients with liver disease. Blood Venous blood specimen / Unknown 11/02/2024 4:26 PM EDT 11/02/2024 6:30 PM EDT us Kathleen Bustamante MD LAB BLOOD ORDERABLES Final Re sult [facility] [address] [place] [phone] [phone] * (ABNORMAL) Comprehensive Metabolic Panel (11/02/2024 4:26 PM EDT) Sodium 141 135 - 145 mmol/L [facility] Potassium 3.8 3.3 - 5.1 mmol/L [facility] Chloride 105 96 - 108 mmol/L [facility] Carbon Dioxide 26 22 - 29 mmol/L [facility] Anion Gap 14 12 - 20 [facility] Urea Nitrogen (BUN) 13 9 - 16 mg/dL [facility] Creatinine, Serum 0.93 0.5 - 1.4 mg/dL [facility] Estimated Glomerular Filt Rate >60 [facility] Comment:Chronic Kidney Disea se: Estimated GFR < 60 mL/min/[id number] Kidney Disease: Estimated GFR < 15 mL/min/1.73m2 Glucose 89 60 - 115 mg/dL [facility] Calcium 9.4 8.4 - 10.2 mg/dL [facility] Bilirubin, Total 0.4 0.0 - 1.0 mg/dL [facility] Aspartate Amino Transferase 23 5 - 37 U/L [facility] Alanine Aminotransferase 32 0 - 40 U/L [facility] Total Protein 8.1(H) 6.5 - 8.0 g/dL [facility] Albumin Level 4.7 3.5 - 5.0 g/dL [facility] Alkaline Phosphatase 73 39 - 117 U/L [facility] Blood Venous blood specimen / Unknown 11/02/2024 4:26 PM EDT 11/02/2024 6:30 PM EDT us Kathleen Bustamante MD LAB BLOOD ORDERABLES Final Re sult Performing Organization Address [facility] Co de Phone Number [facility] [address] [place] [phone] * Basic Metabolic Panel (11/02/2024 4:26 PM EDT) Sodium 142 135 - 145 mmol/L [facility] Potassium 3.9 3.3 - 5.1 mmol/L [facility] Chloride 104 96 - 108 mmol/L [facility] Carbon Dioxide 25 22 - 29 mmol/L [facility] Anion Gap 17 12 - 20 [facility] Urea Nitrogen (BUN) 13 9 - 16 mg/dL [facility] Creatinine, Serum 0.87 0.5 - 1.4 mg/dL [facility] Estimated Glomerular Filt Rate >60 [facility] Comment:Chronic Kidney Disea se: Estimated GFR < 60 mL/min/[id number] Kidney Disease: Estimated GFR < 15 mL/min/1.73m2 Glucose 88 60 - 115 mg/dL [facility] Calcium 9.5 8.4 - 10.2 mg/dL [facility] Blood Venous blood specimen / Unknown 11/02/2024 4:26 PM EDT 11/02/2024 6:30 PM EDT Angel Rebolledo MD LAB BLOOD ORDERABLES Final Result Performing Organization Address [facility] Co de Phone Number [facility] [address] [place] [address] [phone] * XR CHEST PA AND LATERAL (09/29/2024 4:20 PM EST) Anatomical Region Laterality Modality Radiographic Malinda ging us Historical Provider IMG XR PROCEDURES Final R esult * XR Chest 2 Views (09/21/2024 11:33 AM EST) Anatomical Region Laterality Modality Chest Radiographic Malinda ging 09/21/2024 11:3 3 AM EST Narrative 09/21/2024 12:08 PM EST ?[facility] ?[address] ?[place] [address] ?XRay Report ? Signed ? Patient: Bendtson,Christopher ?MR#: [id number] ?? [id number] ? : 1975 ?Acct:[id number] ? Age/Sex: 49 / M ?ADM Date: 09/21/24 ? Loc: HO.HHCX ? Attending Dr: Rosa M Rincon MD ? Ordering Physician: Rosa M Rincon MD ?? Date of Service: 09/21/24 ?? Procedure(s): XR chest 2V ?? Accession Number(s): [id number] ? cc: Rosa M Rincon MD ? [...] DD/ 1133 ? TD/TT: 09/21/24 1155 ? Case Liner: MSM ? Procedure Note Sharonda Dolan - 09/21/[address] [address] XRay Report Signed Patient: Becky Davis#: [id number] : 1975Acct:[id number] Age/Sex: 49 / MADM Date: 09/21/24 Loc: HO.HHCX Attending Dr: Rosa M Rincon MD Ordering Physician: Rosa M Rincon MD Date of Service: 09/21/24 Procedure(s): XR chest 2V Accession Number(s): [id number] cc: Rosa M Rincon MD EXAMINATION: XR [...] 09/21/24 1206 DD/ 1133 TD/TT: 09/21/24 1155 Case Liner: YENNIFER Rosa M Rincon MD IMG XR PROCEDURES Final Re sult * (ABNORMAL) Influenza B (ID NOW Rapid Molecular) (09/14/2024 9:49 AM EST) Only the most recent of2 resultswithin the time period is included. Influenza B Positive( A) Negative, Indeterminate [facility] Swab 09/14/2024 9:49 AM EST Rosa M Rincon MD POINT OF CARE TEST ENTER/E DIT ORDERABLES Final Result Performing Organization Address [facility] Co de Phone Number [facility] [address] [place] [phone] * Influenza A (ID NOW Rapid Molecular) (09/14/2024 9:49 AM EST) Only the most recent of2 resultswithin the time period is included. Influenza A Negative Negative, Indeterminate [facility] Swab 09/14/2024 9:49 AM EST Rosa M Rincon MD POINT OF CARE TEST ENTER/E DIT ORDERABLES Final Result Performing Organization Address [facility]/ZIP Co de Phone Number [facility] [address] [place] [phone] * POCT Rapid COVID Ag (09/14/2024 9:49 AM EST) Only the most recent of2 resultswithin the time period is included. Rapid COVID Ag Negative Swab 09/14/2024 9:49 AM EST Rosa M Rincon MD POINT OF CARE TEST ENTER/E DIT ORDERABLES Final Result from Last 3 Months Insurance [facility] [employer] Care Teams Steel Roller Relationship Specialty Start Date End Date Kathleen Bustamante MD [address] [place] [address] PCP - General Family Medicine 05/22/23
--- OUTSIDE RECORDS SUMMARY | 2024-11-25 17:02 | XMS_ITS | Clinical Summary ---
Author Organization Patient Business Ser [facility] Address [address] [place] [address] Care Team Providers Care Machine Feeder Raw Stock Name Role Phone Crow Armijo MD Primary Care Provider [phone] Allergies Active Allergy Reactions Criticality Noted Date [...] Maintenance Results * (ABNORMAL) Lipid panel (10/01/2019) [facility] LDL/HDL Ratio 4 0 - 4 Triglycerides 109 0 - 150 mg/dL Cholesterol 213(A) 0 - 200 mg/dL HDL 59 >=40 mg/dL LDL Cholesterol 133(A) 0 - 100 mg/dL Blood Venous blood specimen / Unknown Historical Provider LAB BLOOD ORDERABLES Sherin l Result * HIV Screening (03/29/2016) [facility] HIV Screening Abstracted [facility] Provider HEALTH MAINTENANCE Final Result * Hepatitis C Screening (03/29/2016) [facility] Hepatitis C Screening Abstracted [facility] Provider HEALTH MAINTENANCE Final Result from Last 3 Months or Most Recently Relevant to Health Maintenance Care Teams Machine Feeder Raw Stock Relationship Specialty Start Date End Date Crwo Armijo MD [address] [place] [phone] PCP - General Internal Medicine 02/24/19
--- OUTSIDE RECORDS SUMMARY | 2024-11-25 17:02 | XMS_ITS | Encounter Summary ---
Author Organization [employer] Address [address] [place] [address] 7 [place] [address] Care Team Providers Care Junior Project Coordinator Name Role Phone Kathleen Bustamante MD Primary Care Provider [phone] Reason for Referral * Imaging (Routine) - Authorized Specialty Diagnoses / Procedures Referred By Contac declan Referred To Contact Radiology Diagnoses Gross hematuria Procedures US RENAL BI Angel Rebolledo MD [address] [place] [address] Phone: tel: fax: [address] Phone: tel: fax: Referral ID Status Reason Start Date Expiration Date V isits Requested Visits Authorized [id number] Authorized 11/03/2024 11/03/2025 1 1 Encounter Details Date Type Department Care Team (Late st Contact Info) Description 11/03/2024 Orders Only [facility] MEDIC[facility] [address] [place] [address] Angel Rebolledo MD [address] [place], [place] [phone] Gross hematuria (Primary Dx) Social History Tobacco Use Types Packs/Day Years [...] as of this encounter Plan of Treatment Scheduled Orders Name Type Priority Associated Diagnoses Orde r Schedule US RENAL BI Imaging Routine Gross hematuria Expected: 11/03/2024, Expires: 11/03/2025 documented as of this encounter Visit Diagnoses Diagnosis Gross hematuria- Primary documented in this encounter Additional Health Concerns Assessment Noted Time PHQ-9 Depression Total Score: 14 025 4:18 PM EDT documented as of this encounter Care Teams Junior Project Coordinator Relationship Specialty Start Date End Date Kathleen Bustamante MD [address] [place] [phone] PCP - General Family Medicine 05/22/23 documented as of this encounter
--- OUTSIDE RECORDS SUMMARY | 2024-11-25 17:02 | XMS_ITS | Encounter Summary ---
Author Organization [employer] Address [address] [facility] [address]t [place] [address] Care Team Providers Care Vamp Creaser Name Role Phone Kathleen Bustamante MD Primary Care Provider [phone] Encounter Details Date Type Department Care Team ([facility] Contact Info) Description 09/29/2024 Orders Only [facility] [address] [place], [place] [phone] Provider, MD Yuly Social History Tobacco Use [...] documented as of this encounter Care Teams Vamp Creaser Relationship Specialty Start Date End Date Kathleen Bustamante MD [address] [place] [address] PCP - General Family Medicine 05/22/23 documented as of this encounter
== END 2024-11-25 15:57 | disposition home or self-care (01) ==
LOC: HO.US 15:56
PROVIDERS: PCP Family Medicine; Visit Provider Internal Medicine
DX: R31.0 Gross hematuria (principal)
CPT/HCPCS: 76775

== ENCOUNTER → 2024-11-25 15:58 | Outpatient (BNV) | payer OTHER, SELFPAY | PROVIDERS: PCP Family Medicine; Visit Provider Specialist | DX: R31.9 Hematuria, unspecified (principal) | CPT/HCPCS: 76775 ==

== ENCOUNTER 2025-03-29 15:13 | Outpatient (REF) | payer OTHER, SELFPAY ==
--- OUTSIDE RECORDS SUMMARY | 2025-03-29 15:44 | XMS_ITS | Clinical Summary ---
Author Organization Patient Business Ser [facility] Address [address] [place] [address] Care Team Providers Care Senior Service Technician Name Role Phone Unavailable Primary Care Provider Unavailabl e Allergies Active Allergy Reactions Criticality Noted Date [...] Vaccine (1 - 2023-2 5 season) 2024 Depression Screening 08/25/2024 Cholesterol Screening (Lipid Panel) 10/01/2024 10/01/2019 Influenza Vaccine (#1) 2025 DTaP,Tdap,and Td Vaccines (2 - Td or [...] age to complete this topic Meningococcal B Vaccine Aged Out No l onger eligible based on patient's age to complete this topic Pneumococcal Vaccine: Pediat rics (0 to 5 Years) and At-Risk Patients (6 to 49 Years) Aged Out No longer eligi ble [...] mg/dL Blood Venous blood specimen / Unknown [facility] Provider LAB BLOOD ORDERABLES Sherin l Result * HIV Screening (03/29/2016) [facility] HIV Screening Abstracted Historical Provider HEALTH MAINTENANCE Final Result * Hepatitis C Screening (03/29/2016) [facility] Hepatitis C Screening Abstracted [facility] Provider HEALTH MAINTENANCE Final Result from Last 3 Months or Most Recently Relevant to Health Maintenance
[2025-03-29 18:23] LABS: Appearance Urine Clear; Glucose Urine UA Negative (Negative); PH 7.0 (5.0-9.0); Specific Gravity - Urine 1.015 (1.005-1.025); UMIC TRIGGER UACC YES
[2025-03-29 18:36] LABS: Anion Gap 13 (12-20); Blood Urea Nitrogen 14 mg/dL (9-16); Calcium 9.0 mg/dL (8.4-10.2); Carbon Dioxide 26 mmol/L (22-29); Chloride 104 mmol/L (96-108); Estimated Glomerular Filt Rate > 60; Potassium 4.0 mmol/L (3.3-5.1); Sodium 139 mmol/L (135-145)
[2025-03-29 18:57] LABS: PSA,Total (Free>4and<10) 1.07 ng/mL (0.00-4.00)
== END 2025-03-29 15:14 | disposition home or self-care (01) ==
LOC: HO.CHCLDS 15:13
PROVIDERS: PCP Family Medicine; Visit Provider Internal Medicine
DX: I10 Essential (primary) hypertension (principal); R39.9 Unspecified symptoms and signs involving the genitourinary system; Z12.5 Encounter for screening for malignant neoplasm of prostate
CPT/HCPCS: 36415; 80048; 81001; 84153

== ENCOUNTER 2025-06-16 10:23 | Outpatient (AMB) | payer OTHER, SELFPAY ==
--- OUTSIDE RECORDS SUMMARY | 2025-06-15 09:45 | XMS_ITS | Encounter Summary ---
Author Organization [employer] Address [address] [place] [address] [address] [place] [address] Care Team Providers Care Life Management Teacher Name Role Phone Kathleen Bustamante MD Primary Care Provider [phone] Reason for Referral * Imaging (Routine) - Authorized Specialty Diagnoses / Procedures Referred By Steve manriquez Referred To Contact Radiology Diagnoses Dysphagia, unspecified type Procedures FL Esophagus Barium Swallow Kathleen Bustamante MD [address] [place] [address] Phone: tel: fax: [address] Phone: tel: fax: Referral ID Status Reason Start Date Expiration Date Visits Requested Visits Authorized [id number] Authorized Perform Procedure 06/15/2026 1 1 * Consultation (Routine) - Closed Specialty Diagnoses / Procedures Referred By Steve manriquez Referred To Contact Physical Therapy Diagnoses Chronic pain of left knee Kathleen Bustamante MD [address] [place] [address] Phone: tel: fax: Physical Therapy, [address] [facility] [address] [place], [place] Phone: tel: fax: Referral ID Status Reason Start Date Expiration Date V isits Requested Visits Authorized [id number] Closed Specialty Services Required 06/15/2025 06/15/2026 1 1 Reason for Visit * Reason Comments Hypertension Encounter Details Date Type Department Care Team ([facility] st Contact Info) Description 06/15/2025 9:45 AM EDT Office Visit [facility] MED & PEDS [address] [place] [address] Kathleen Bustamante MD [address] [place] [address] Primary hypertension (Primary Dx); Chronic pain of left knee; Dysphagia, unspecified type; History of kidney stones Social History Tobacco Use Types Packs/Day Years Used Date Smoking Tobacco: Never Passive Smoke Exposure: Never Smokeless Tobacco: Never Alcohol Use Standard Drinks/Week Comments Never 0 (1 standard drink = 0.6 oz pur e alcohol) Alcohol Answer Date Recorded How often do you have a drink containing alcohol ? 0 06/15/2025 How many drinks containing a lcohol do you have on a typical day when you are drinking? 0 06/15/2025 How often do you have six or more drinks on one occasion? 0 06/15/2025 Depression Answer Date Recorded Patient Health Questionnaire-9 Score 8 06/15/2025 Patient Health Questionnaire-9 Score 8 06/15/2025 Last PHQ-9: Questionnaire Data Not on file 1 Housing Stability Answer Date Recorded What is [...] Answer Date Recorded Patient Health Questionnaire-2 Score 1 06/15/2025 Internet Access Answer Date Recorded Internet Access [...] Sign Reading Time Taken Comments Blood Pressure 134/82 06/15/2025 9:53 AM EDT Pulse 80 06/15/2025 9:53 AM EDT Temperature 37.1 C (98.7 F) 06/15/2025 9:53 AM EDT Respiratory Rate 20 06/15/2025 9:53 AM EDT Oxygen Saturation 98% 06/15/2025 9:53 AM EDT Inhaled Oxygen Concentration - - Weight 110 kg (242 lb 12.8 oz) 06/15/2025 9:53 A M EDT Height 180.3 cm (5' 11 ) 06/15/2025 9:53 AM EDT Body Mass Index 33.86 06/15/2025 9:53 AM EDT documented in this encounter Functional Status * Over the past 2 weeks, how often have you been bothered by any of the following problems? Question Answer Date of Assessment Author Patient Health Questionnaire -2 Score 1 06/15/2025 10:11 AM EDT Kathleen Bustamante MD * Little interest or pleasure in doing things Answer Date of Assessment Author Several days 06/15/2025 10:11 AM EDT Kathleen Bustamante MD * Feeling down, depressed, or hopeless Answer Date of Assessment Author Not at all 06/15/2025 10:11 AM EDT Kathleen Bustamante MD * Trouble falling or staying asleep, or sleeping too much Answer Date of Assessment Author Nearly every day 06/15/2025 10:11 AM EDT Kathleen Bustamante MD * Feeling tired or having little energy Answer Date of Assessment Author Several days 06/15/2025 10:11 AM Kathleen Hopkins MD * Poor appetite or overeating Answer Date of Assessment Author More than half the days 06/15/2025 10:11 AM Kathleen Hopkins MD * Feeling bad about yourself - or that you are a failure or have let yourself or your family down Answer Date of Assessment Author Not at all 06/15/2025 10:11 AM Kathleen Hopkins MD * Trouble concentrating on things, such as reading the newspaper or watching television Answer Date of Assessment Author Several days 06/15/2025 10:11 AM Kathleen Hopkins MD * Moving or speaking so slowly that other people could have noticed? Or the opposite - being so fidgety or restless that you have been moving around a lot more than usual. Answer Date of Assessment Author Not at all 06/15/2025 10:11 AM Kathleen Hopkins MD * Thoughts that you would be better off or hurting yourself in some way Answer Date of Assessment Author Not at all 06/15/2025 10:11 AM Kathleen Hopkins MD * Patient Health Questionnaire-9 Score Answer Date of Assessment Author 8 06/15/2025 10:11 AM Kathleen Hopkins MD * How difficult have these problems made it for you to do your work, take care of things at home, or get along with other people? Answer Date of Assessment Author Not difficult at all 06/15/2025 10:11 AM Kathleen Olmos MD documented as of this encounter Progress Notes * Kathleen Bustamante MD - 06/15/2025 9:45 AM EDT Subjective Patient ID: Tenzin Davis is a 49 y.o. male who presents for Hypertension. Tenzin Davis is a male patient presenting with multiple concerns including weight management, alcohol use, knee pain, and various other symptoms. He reports needing to lose weight and stop drinking at night, noting that his blood pressure looks good but stress increases it. He experienced astressful situation with a house offer that led to panic attacks and trouble breathing. He has not started naltrexone for alcohol because he cannot find it, stating his moves his medications around. He is not taking sertraline, only blood pressure medication. He drinks beer to help him sleep but acknowledges it is causing weight gain. He denies drinking hard liquor or using drugs. His left knee pain has been progressively worsening over 20 years and is very bad, likely due to his weight and work. The pain is located on the medial side and affects his balance. He reports havingarthritis in his knee and possibly a Valadez's cyst. He has been experiencing slowed urine flow but denies having prostate problems. He previously had issues swallowing solids, especially starches, butthis has improved. He reports having blood in his urine for a long time and a history of kidney stones more than 10 times. He has been experiencing eye flutters for a long time and [facility] but has not been back yet. He reports waking up at 2 or 3 in the morning and being unable to get back to sleep. He wants to get under 200 pounds and acknowledges he should take his sleep medication instead of using alcohol. He mentions needing to reduce sugar intake and lose weight,and states he needs lab work for kidney function and blood sugar but did not fast today. Social History - Substance Use: Regular alcohol use, drinks beer nightly to help with sleep, reports no hard liquor or recreational drug use - Living Situation: Lives with and small child - Marital Status: - Family Structure: Has a young child - Stress and Coping: Reports high stress levels affecting blood pressure, experienced recent stressful situation with house offer leading to panic attacks - Sleep Patterns: Reports waking at 2-3 AM and difficulty returning to sleep Review of Systems HEENT: Positive for eye flutters. Respiratory: Positive for trouble breathing during panic attacks. Gastrointestinal: Positive for difficulty swallowing solids, especially starches (improved). Genitourinary: Positive for hematuria, decreased urine flow. Musculoskeletal: Positive for left knee pain on medial side affecting balance. 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 Psychiatric: Positive for panic attacks. Review of Systems Objective BP 134/82 Pulse 80 Temp 98.7 ??F (37.1 ??C) (Oral) Resp 20 Ht 5' 11 (1.803 m) Wt 242 lb 12.8 oz (110 kg) SpO2 98% BMI 33.86 kg/m?? Physical Exam Constitutional: General: He is not in acute distress. Appearance: He is obese. He is not ill-appearing. HENT: Head: Normocephalic and atraumatic. Nose: No congestion. Pulmonary: Effort: Pulmonary effort is normal. No respiratory distress. Breath sounds: Normal breath sounds. Musculoskeletal: Cervical back: Normal range of motion. Right knee: Tenderness present over the medial joint line. Left knee: Crepitus present. Tenderness present over the medial joint line. Normal alignment, normal meniscus and normal patellar mobility. Instability Tests: Anterior drawer test negative. Posterior drawer test negative. Anterior Tatianna test negative. Medial Reg test negative and lateral Reg test negative. Neurological: General: No focal deficit present. Mental Status: He is alert. Psychiatric: Mood and Affect: Mood normal. Assessment/Plan Problem List Items Addressed This Visit Primary hypertension - Primary Relevant Orders CBC auto differential Lipid Panel, Standard Comprehensive Metabolic Panel Urinalysis, Complete, with Reflex to Culture Chronic pain of left knee Relevant Orders XR Knee 4+ Views Left Referral to Physical Therapy Dysphagia Relevant Orders FL Esophagus Barium Swallow History of kidney stones Tenzin Davis is a male patient presenting with multiple concerns including alcohol use disorder, knee pain, hematuria, and eye symptoms, seeking weight loss and alcohol cessation support. Alcohol use disorder Assessment: Patient reports nightly beer consumption for sleep aid, contributing to weight gain andexpressing desire to stop drinking. Has not started prescribed naltrexone due to inability to locate medication, with moving medications around. Patient acknowledges need to cease alcohol use and utilize prescribed sleep medication instead. Given patient's young age with family responsibilities , there is concern for progression to cirrhosis or cardiovascular complications from alcohol-related hypertension. Plan: - Obtain naltrexone from pharmacy - Stop alcohol consumption - Take hydroxyzine for sleep instead of alcohol - Consider referral to Dr. Ceron or Dr. Zamora for alcohol use assistance if needed - Follow-up in July to assess progress Left knee pain Assessment: Patient reports severe left knee pain progressively worsening over 20 years, likely related to weight and occupational factors. Pain localized to medial aspect with associated balance issues. Patient has known arthritis and possible Valadez's cyst. Symptoms significantly impact function and mobility. Plan: - Order knee x-ray - Refer to physical therapy - If conservative management ineffective, obtain MRI and refer to orthopedics - Follow-up in 2 months Hematuria Assessment: Patient reports long-standing blood in urine with history of recurrent kidney stones (more than 10 episodes). Need to evaluate for malignancy involving urethra or kidneys and determine source of bleeding. Plan: - Urologist appointment scheduled for tomorrow - Investigate source of hematuria to rule out malignancy Weight management Assessment: Patient expresses desire for weight loss with goal to get under 200 pounds. Current weight contributing to knee problems and overall health concerns. Weight gain attributed to nightly alcohol consumption. Plan: - Reduce sugar intake - Weight loss through dietary modifications - Cessation of alcohol to reduce caloric intake Eye flutters Assessment: Patient reports long-standing eye flutters. Previously evaluated with recommendation toreturn to new patient escort at [facility] where glasses were obtained, but has not followed up. Plan: - Return to new patient escort at [facility] for follow-up - Alternative referral available to Dr. Wong or Dr. 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 Currently using alcohol as sleep aid, which is counterproductive and contributing to other health issues. Plan: - Take prescribed hydroxyzine for sleep - Avoid alcohol use for sleep - Reassess sleep patterns at July follow-up Laboratory monitoring Assessment: Patient requires laboratory evaluation for kidney function and blood sugar monitoring. Patient did not fast today, so testing deferred. Plan: - Schedule fasting laboratory work for kidney function and blood sugar - Can utilize [facility] or their [place] location - Complete on another day when appropriately fasted documented in this encounter Plan of Treatment Scheduled Orders Name Type Priority Associated Diagnoses Orde r Schedule XR Knee 4+ Views Left Imaging Routine Chronic pain of left knee Expected: 06/15/2025, Expires: 06/15/2026 FL Esophagus Barium Swallow Imaging Routine Dysphagia, unspecified type Expected: 06/15/2025, Expires: 06/15/2026 CBC auto differential Lab Routine Primary hypertension Expected: 06/15/2025 (Approximate), Expires: 06/15/2026 Lipid Panel, Standard Lab Routine Primary hypertension Expected: 06/15/2025 (Approximate), Expires: 06/15/2026 Comprehensive Metabolic Panel Lab Routine Primary hypertension Expected: 06/15/2025 (Approximate), Expires: 06/15/2026 Urinalysis, Complete, with Reflex to Culture Lab Routine Primary hypertension Expected: 06/15/2025 (Approximate), Expires: 06/15/2026 Scheduled Referrals Name Type Priority Associated Diagnoses Orde r Schedule Referral to Physical Therapy Outpatient Referral Routine Chronic pain of left knee Expected: 06/15/2025 (Approximate), Expires: 06/15/2026 documented as of this encounter Visit Diagnoses Diagnosis Primary hypertension- Primary Unspecified essential hypertension Chronic pain of left knee Dysphagia, unspecified type History of kidney stones documented in this encounter Additional Health Concerns Assessment Noted Time PHQ-9 Depression Total Score: 8 06/15/20 25 10:11 AM EDT documented as of this encounter Care Teams Life Management Teacher Relationship Specialty Start Date End Date Kathleen Bustamante MD [address] [place] [address] PCP - General Family Medicine 05/22/23 documented as of this encounter
--- NOTE | 2025-06-16 10:40 | MHC.OFFVIS ---
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 He is a patient of Dr. Bustamante. He seen for the following urologic conditions - microscopic hematuria UA in office negative Appears transitory Prior history kidney stone required lithotripsy Renal ultrasound normal Did discuss some weakening of urinary stream At this point able to empty under 20 seconds and urine distance greater than 24 in Follow next year for UA PFSH Medical History No pertinent past medical history Surgical History Hx of wisdom tooth extraction History of lithotripsy Family History Unknown No family history of colorectal cancer Social History Household Members: Family Are you a primary healthcare science specialist to a significant other at home: No Do you presently have visiting nurse or other home services: No Alcohol intake: current Alcohol intake frequency: 3 or more drinks per day Patient Tobacco Use Status: Never used Tobacco Review of Systems Const Denies chills and Denies fever(s) Card Reports no additional complaints and Denies syncope Resp Denies cough GI Denies abdominal pain and Denies heartburn Reports as per HPI and Denies change in libido Neuro Denies syncope Psych Denies change in libido Endo Denies change in libido Physical Exam Const General: cooperative, healthy appearing, comfortable and no acute distress Orientation/consciousness: patient oriented x3 HEENT Face and sinus: Yes normal facial exam Mouth: moist mucous membranes Neck Neck: Yes normal visual inspection, Yes full ROM and Yes trachea midline Chest Chest palpation & inspection: normal inspection of the chest Resp Effort & Inspection: normal respiratory effort, able to speak in complete sentences and no respiratory distress GI Inspection: Yes normal to inspection Back/Spine/Pelvis Cervical Spine: normal cervical lordosis Thoracic/Lumbar Spine: thoracic and lumbar spine normal to inspection Skin General skin exam: no rashes or lesions noted Neuro General: patient oriented x3, gait normal, tone normal and moves all extremities Extrem General: Yes normal to inspection and Yes capillary refill normal Results AMB Urinalysis, Automated UA Leukoctes 0 Edwin/uL Last Edit by Isabelle Colon, [facility] on 06/16/25 10:47 UA Nitrite Negative Last Edit by Isabelle Colon, [facility] on 06/16/25 10:47 UA Urobilinogen 0.2 mg/dL Last Edit by Isabelle Colon, [facility] on 06/16/25 10:47 UA Protein 0 mg/dL Last Edit by Isabelle Colon, [facility] on 06/16/25 10:47 UA pH 6.5 Last Edit by Isabelle Colon, [facility] on 06/16/25 10:47 UA Blood 0 Jace/uL Last Edit by Isabelle Colon, [facility] on 06/16/25 10:47 UA Specific [place] 1.015 Last Edit by Isabelle Colon, [facility] on 06/16/25 10:47 UA Ketone Negative Last Edit by Isabelle Colon, [facility] on 06/16/25 10:47 UA Bilirubin 0 mg/dL Last Edit by Isabelle Colon, [facility] on 06/16/25 10:47 UA Glucose 0 mg/dL Last Edit by Isabelle Colon, [facility] on 06/16/25 10:47 AMB Urinalysis, Automated UA Leukoctes 0 Edwin/uL Last Edit by Isabelle Colon, [facility] on 06/16/25 10:57 UA Nitrite Negative Last Edit by Isabelle Colon, [facility] on 06/16/25 10:57 UA Urobilinogen 0.2 mg/dL Last Edit by Isabelle Colon, [facility] on 06/16/25 10:57 UA Protein 0 mg/dL Last Edit by Isabelle Colon, [facility] on 06/16/25 10:57 UA pH 6.5 Last Edit by Isabelle Colon, [facility] on 06/16/25 10:57 UA Blood 0 Jace/uL Last Edit by Isabelle Colon, [facility] on 06/16/25 10:57 UA Specific [place] 1.015 Last Edit by Isabelle Colon, [facility] on 06/16/25 10:57 UA Ketone Negative Last Edit by Isabelle Eligio [facility] on 06/16/25 10:57 UA Bilirubin 0 mg/dL Last Edit by Isabelle Eligio [facility] on 06/16/25 10:57 UA Glucose 0 mg/dL Last Edit by Isabelle Eligio CARLYA on 06/16/25 10:57 Results Reviewed Results Reviewed: Laboratory Last Values Urine pH (Auto) 6.5 06/16/25 10:57 Specific [place] (Auto) 1.015 06/16/25 10:57 Urine Protein (Auto) 0 mg/dL 06/16/25 10:57 Glucose (UA)(Auto) 0 mg/dL 06/16/25 10:57 Urine Ketones (Auto) Negative 06/16/25 10:57 Urine Blood (Auto) 0 Jace/uL 06/16/25 10:57 Urine Nitrite (Auto) Negative 06/16/25 10:57 Urine Bilirubin (Auto) 0 mg/dL 06/16/25 10:57 Urine Urobilinogen (Auto) 0.2 mg/dL 06/16/25 10:57 Leukocyte Esterase (Auto) 0 Edwin/uL 06/16/25 10:57 Assessment & Plan Assessment & Plan (1) Microscopic hematuria: Code(s): R31.29 - Other microscopic hematuria Category: Medical Plan Twelve month follow-up UA office Patient Instructions: This note is constructed using voice recognition software. While every effort has been made to ensure accuracy metal tank builder errors may have been included. Imaging studies, laboratory and physical exam results were discussed and reviewed in detail. No major barriers to patient understanding were identified. An opportunity to ask questions regarding the treatment plan was provided. All questions were answered. The patient expressed understanding and agreement with the above treatment plan. The patient is aware they should contact our office by phone for worsening of their current condition or the appearance of new urologic symptoms. Compliance is encouraged with any medications and followup testing that is ordered. It is a privilege to participate in the urologic care of your patient. If you have any questions or concerns regarding treatment for the above conditions, or other urologic issues, please do not hesitate to contact me. The office telephone contact is [phone]. Sincerely, Dr Shilo Romero MD, [facility] - Urology Compassionate Specialist Care for the Genitourinary System Coding Level of Care Code New Pt Level 3 (73734) Diagnoses Microscopic hematuria R31.29
--- OUTSIDE RECORDS SUMMARY | 2025-06-16 12:25 | XMS_ITS | Encounter Summary ---
Author Organization [email or web address] Address [address] [place] [address] [address] [place] [address] Care Team Providers Care Business Operations Coordinator Name Role Phone Kathleen Bustamante MD Primary Care Provider [phone] Reason for Visit * Reason Onset Date Comments chart prep 06/13/2025 Encounter Details Date Type Department Care Team ([facility] Contact Info) Description 06/13/[address] [facility] MED [facility] PEDS [address] [place], [place] [id number] Kathleen Bustamante MD [address] [place] [address] chart prep Social History Tobacco Use Types Packs/Day Years [...] encounter Miscellaneous Notes * Telephone Encounter - Néstor Chao [place] - 06/13/2025 1:05 PM EDT Chart Prep Labs: done Images: done Referrals: appointment pending Vaccines due: Covid, Flu, and Hep B Screenings: Overdue care gaps: SBIRT, PHQ-9, and Disability screen documented in this encounter Plan of Treatment Not on file documented as of this encounter Visit Diagnoses Not on filedocumented in this encounter Additional Health Concerns Assessment Noted Time PHQ-9 Depression Total Score: 12 025 2:39 PM EDT documented as of this encounter Care Teams Business Operations Coordinator Relationship Specialty Start Date End Date Kathleen Bustamante MD [address] [place] [address] PCP - General Family Medicine 05/22/23 documented as of this encounter
--- OUTSIDE RECORDS SUMMARY | 2025-06-16 12:25 | XMS_ITS | Encounter Summary ---
Author Organization [employer] Address [address] [place] [address] 7 [place] [address] Care Team Providers Care Liaison Engineer Name Role Phone Kathleen Bustamante MD Primary Care Provider Encounter Details Date Type Department Care Team ([facility] st Contact Info) Description 09/29/2024 Orders Only [facility] [address] [place], [place] [phone] Provider, MD Yuly Social History Tobacco Use [...] documented as of this encounter Care Teams Liaison Engineer Relationship Specialty Start Date End Date Kathleen Bustamante MD [address] [place] [address] PCP - General Family Medicine 05/22/23 documented as of this encounter
--- OUTSIDE RECORDS SUMMARY | 2025-06-16 12:25 | XMS_ITS | Encounter Summary ---
Author Organization [employer] Address [address] [facility] 7t [place] [address] Care Team Providers Care Car Groomer Name Role Phone Kathleen Bustamante MD Primary Care Provider [phone] Encounter Details Date Type Department Care Team (Latest Contact Info) Description 06/15/2025 Travel Social History Tobacco Use Types Packs/Day [...] AM EDT documented as of this encounter Functional Status * Over the past 2 weeks, how often have you been bothered by any of the following problems? Question Answer Date of Assessment Author Patient Health Questionnaire -2 Score 1 06/15/2025 10:11 AM Kathleen Hopkins MD * Little interest or pleasure in doing things Answer Date of Assessment Author Several days 06/15/2025 10:11 AM Kathleen Hopkins MD * Feeling down, depressed, or hopeless Answer Date of Assessment Author Not at all 06/15/2025 10:11 AM Kathleen Hopkins MD * Trouble falling or staying asleep, or sleeping too much Answer Date of Assessment Author Nearly every day 06/15/2025 10:11 AM Kathleen Hopkins MD * Feeling tired or having little [...] 10:11 AM EDT Kathleen Bustamante MD * Moving or speaking so slowly that other people could have noticed? Or the opposite - being so fidgety or restless that you have been moving around a lot more than usual. Answer Date of Assessment Author Not at all 06/15/2025 10:11 AM EDT Kathleen Bustamante MD * Thoughts that you would be better off or hurting yourself in some way Answer Date of Assessment Author Not at all 06/15/2025 10:11 AM EDT Kathleen Bustamante MD * Patient Health Questionnaire-9 Score Answer Date of Assessment Author 8 06/15/2025 10:11 AM EDT Kathleen Bustamante MD * How difficult have these problems made it for you to do your work, take care of things at home, or get along with other people? Answer Date of Assessment Author Not difficult at all 06/15/2025 10:11 AM EDT Kathleen Alicea MD documented as of this encounter Plan of Treatment Not on file documented as of this encounter Visit Diagnoses Not on filedocumented in this encounter Additional Health Concerns Assessment Noted Time PHQ-9 Depression Total Score: 8 06/15/20 25 10:11 AM EDT documented as of this encounter Care Teams Car Groomer Relationship Specialty Start Date End Date Kathleen Bustamante MD [address] [place] [address] PCP - General Family Medicine 05/22/23 documented as of this encounter
--- OUTSIDE RECORDS SUMMARY | 2025-06-16 12:25 | XMS_ITS | Encounter Summary ---
Author Organization [employer] Address [address] [place] [address] 7 [place] [address] Care Team Providers Care Manager Php Name Role Phone Kathleen Bustamante MD Primary Care Provider [phone] Reason for Referral * Imaging (Routine) - Closed Specialty Diagnoses / Procedures Referred By Contac t Referred To Contact Radiology Diagnoses Gross hematuria Procedures US RENAL BI Angel Rebolledo MD [address] [place] [address] Phone: tel: fax: [facility] [address] [place] [address] Phone: tel: fax: Referral ID Status Reason Start Date Expiration Date Visits Re quested Visits Authorized [id number] Closed 11/03/2024 11/03/2025 1 1 Encounter Details Date Type Department Care Team (Late st Contact Info) Description 11/03/2024 Orders Only [facility] [address] [place] [address] Angel Rebolledo MD [address] [place], [place] [phone] Gross hematuria (Primary Dx) Social History Tobacco [...] Procedure Name Priority Date/Time Associated Diagnosis Comments US RENAL BI Routine 11/26/2024 9:12 AM EDT Gross hematuria documented in this encounter Results * US RENAL BI (11/26/2024 9:12 AM EDT) Anatomical Region Laterality Modality Abdomen Ultrasound 11/26/2024 9:12 AM EDT Narrative 11/26/2024 9:14 AM EDT [address] [address] Ultrasound Report Signed Patient: Tenzin Davis MR#: [id number] : 1975 Acct:[id number] Age/Sex: 49 / M ADM Date: 11/25/24 Loc: HO.US Attending Dr: Angel Rebolledo MD Ordering Physician: Angel Rebolledo MD Date of Service: 11/25/24 Procedure(s): US renal BI Accession Number(s): [id number] cc: Angel Rebolledo MD; Kathleen Bustamante MD CLINICAL HISTORY: Hematuria US Renal Comparison: None Findings: Right kidney normal size and echotexture, 12.6 cm length. Left kidney normal size and echotexture, 13.1 cm length. No collecting system dilatation of either kidney. Normal color Doppler. IMPRESSION: 1. Normal kidneys. This document has been electronically signed by: Timothy Thrasher MD on 11/26/2024 09:12:54 Dictated By: Timothy Thrasher MD Signed By: <Electronically signed by Timothy Thrasher MD in OV> 11/26/24913 DD/ 1 TD/TT: 11/26/24911 Heat Treat Inspector: Procedure Note Donotuseinterpreter, Image - 11/26/[address] [address] Ultrasound Report Signed Patient: Nydia DavisR#: [id number] : 1975Acct:[id number] Age/Sex: 49 / MADM Date: 11/25/24 Loc: HO.US Attending Dr: Angel Rebolledo MD Ordering Physician: Angel Rebolledo MD Date of Service: 11/25/24 Procedure(s): US renal BI Accession Number(s): [id number] cc: Angel Rebolledo MD; Kathleen Bustamante MD CLINICAL HISTORY: Hematuria US Renal Comparison: None Findings: Right kidney normal size and echotexture, 12.6 cm length. Left kidney normal size and echotexture, 13.1 cm length. No collecting system dilatation of either kidney. Normal color Doppler. IMPRESSION: 1. Normal kidneys. This document has been electronically signed by: Timothy Thrasher MD on 11/26/2024 09:12:54 Dictated By: Timothy Thrasher MD Signed By: <Electronically signed by Timothy Thrasher MD in OV> 11/26/24913 DD/ 1 TD/TT: 11/26/24911 Heat Treat Inspector: us Angel Rebolledo MD IMG US PROCEDURES Final Res ult documented in this encounter Visit Diagnoses Diagnosis Gross hematuria- Primary documented in this encounter Additional Health Concerns Assessment Noted Time PHQ-9 Depression Total Score: 14 11/02/ 025 4:18 PM EDT documented as of this encounter Care Teams Manager Php Relationship Specialty Start Date End Date Kathleen Bustamante MD [address] [place] [address] PCP - General Family Medicine 05/22/23 documented as of this encounter
--- OUTSIDE RECORDS SUMMARY | 2025-06-16 12:25 | XMS_ITS | Clinical Summary ---
Author Organization [employer] [facility] Address [address] [place] [address] Care Team Providers Care Telegraphic Typewriter Repairer Name Role Phone Unavailable Primary Care Provider Unavailabl e Allergies Active Allergy Reactions Criticality Noted Date Comments Cat Dander 08/10/2024 Codeine 08/10/2024 Dog Dander 08/10/2024 House Dust 08/10/2024 Medications diclofenac (VOLTAREN) 1 % topical gel Apply 1 Dose topically 3 times daily. - Apply externally Active glucosamine/cho ndro ingram A/C/Mn (GLUCOSAMINE-CH ONDROIT-VIT C-MN ORAL) Take by mouth. 1500 Complx Cap Active Immunizations Immunization Administration Dates Next Due Tdap Tetanus diptheria [...] Health Maintenance Due Date Last Done Comments Colorectal Cancer Screening: Colonoscopy 1975 Hepatitis B Vaccines (1 of 3 - 19+ 3-dose series) 1994 Social Influencers of Health Screening 02/05/2020 Depression Screening 08/25/2024 Cholesterol Screening (Lipid Panel) 10/01/2024 10/01/2019 COVID-19 Vaccine (1 - 2023-2 5 season) 2025 Influenza Vaccine (#1) 2025 DTaP,Tdap,and Td Vaccines (2 - Td or Tdap) 03/03/2029 03/03/2019 RSV Immunization Adult Patie nts (1 - 1-dose 75+ series) 2050 HIV Screening Completed 03/29/2016 Hepatitis C Screening [...] Maintenance Results * (ABNORMAL) Lipid panel (10/01/2019) [facility] LDL/HDL Ratio 4 0 - 4 Triglycerides 109 0 - 150 mg/dL Cholesterol 213(A) 0 - 200 mg/dL HDL 59 >=40 mg/dL LDL Cholesterol 133(A) 0 - 100 mg/dL Blood Venous blood specimen / Unknown Result Claude Yuly Martini MD LAB BLOOD ORDERABLES Sherin l Result * HIV Screening (03/29/2016) [facility] HIV Screening Abstracted Result Claude Yuly Martini MD HEALTH MAINTENANCE Final Result * Hepatitis C Screening (03/29/2016) [facility] Hepatitis C Screening Abstracted Result Claude Yuly Martini MD HEALTH MAINTENANCE Final Result from Last 3 Months or Most Recently Relevant to Health Maintenance
--- OUTSIDE RECORDS SUMMARY | 2025-06-16 12:25 | XMS_ITS | Encounter Summary ---
Author Organization [employer] Address [address] [facility] 7 [place] [address] Care Team Providers Care Itinerant Teacher Assistant Name Role Phone Kathleen Bustamante MD Primary Care Provider Encounter Details Date Type Department Care Team ([facility] st Contact Info) Description 11/25/2024 Orders Only [facility] [address] [place], [place] [phone] Angel Rebolledo MD [address] [place] [address] Other depression (Primary Dx) Social History Tobacco Use Types [...] as of this encounter Visit Diagnoses Diagnosis Other depression- Primary documented in this encounter Additional Health Concerns Assessment Noted Time PHQ-9 Depression Total Score: 12 025 2:39 PM EDT documented as of this encounter Care Teams Itinerant Teacher Assistant Relationship Specialty Start Date End Date Kathleen Bustamante MD [address] [place] [address] PCP - General Family Medicine 05/22/23 documented as of this encounter
--- OUTSIDE RECORDS SUMMARY | 2025-06-16 12:25 | XMS_ITS | Clinical Summary ---
Author Organization [employer] Address [address] [facility] 7t [place] [address] Care Team Providers Care Raschel Knitting Machine Operator Name Role Phone Kathleen Bustamante MD Primary Care Provider [phone] Allergies Active Allergy Reactions Criticality Noted Date Comments Cat Dander 03/03/2019 Codeine 04/02/2023 Dog Epithelium 03/03/2019 Dust Mite Extract 08/10/2024 Medications * This document contains information received from the source organization and may not represent a complete record from that organization. amLODIPine (Norvasc) 5 MG tabletIndication s:Primary hypertension TAKE 1 TABLET (5 MG) BY MOUTH ONCE PER DAY. 90 tablet 1 5 Active lisinopril 10 MG tabletIndication s:Primary hypertension Take 1 tablet (10 mg) by mouth Once per day. 30 tablet 11 5 026 Active Diclofenac Sodium 1 % gel Apply 1 Dose topically 3 times daily. - Apply externally 025 Discontin ued(Thera py completed ) sertraline (Zoloft) 25 MG tabletIndication s:Other depression Take 1 tablet (25 mg) by mouth Once per day. 30 tablet 11 5 025 Discontin ued(Thera py completed ) hydrOXYzine pamoate (Vistaril) 25 MG capsule Take 1 capsule (25 mg) by mouth every 6 (six) hours if needed for anxiety. 30 capsule 5 025 Discontin ued(Thera py completed ) naltrexone (Depade) 50 MG tablet Take 1 tablet (50 mg) by mouth Once per day. 30 tablet 3 5 025 Discontin ued(Thera py completed ) Active Problems Problem Noted Date Diagnosed Date Chronic pain of left knee 06/15/2025 Dysphagia 06/15/2025 History of kidney stones 06/15/2025 Hematuria 04/15/2025 Kidney stones 01/14/2025 Moderate episode of recurren t major depressive disorder (CMS/HCC) 11/15/2024 BLANCO (generalized anxiety disorder) 11/15/2024 Assessment [...] intervention , Patient to reach out to [facility] team as needed, and Patient to engage [...] recommended reduction of 20-30% of maintenance calories; body shop worker referral offered. Recommended to decrease soda and [...] recommended reduction of 20-30% of maintenance calories; body shop worker referral offered. Recommended to decrease soda and [...] Encounters Date Type Department Care Team Description 06/15/2025 9:45 AM EDT Office Visit [facility] [address] [place] [address] Kathleen Bustamante MD Primary hypertension (Primary Dx); Chronic pain of left knee; Dysphagia, unspecified type; History of kidney stones 06/15/2025 Travel 06/13/2025 Telephone [facility] [address] [place] [address] Kathleen Bustamante MD chart prep 06/10/2025 Patient Outreach [facility] [address] [place] [address] Kathleen Bustamante MD Pre-visit Planning (SDOH screening completed on 11/02/24 ) 04/22/2025 10:30 AM EDT Office Visit [facility] AD[facility] [address] [place] [address] Román Lobo DDS 04/15/2025 3:30 PM EDT Office Visit [facility] [address] [place] [address] Kathleen Bustamante MD Hematuria, unspecified type (Primary Dx); Dysphagia, unspecified type; Primary hypertension; Alcohol use disorder 04/15/2025 Travel 04/07/2025 Patient Outreach [address] [address] Christa Rucker Pre-visit Planning (SDOH screening completed on 11/02/24 ) 04/06/2025 8:00 AM EDT Office Visit [facility] [address] [place] [address] Román Lobo DDS 04/06/2025 Telephone [facility] [address] [place] [address] Kathleen Bustamante MD chart prep 03/30/2025 Results Follow-Up [facility] [address] [place] [address] Tali Jiménez RN Urinalysis, Complete, with Reflex to Culture 03/30/2025 Orders Only [facility] [address] [place] [address] Angel Rebolledo MD Other microscopic hematuria (Primary Dx) 03/29/2025 2:45 PM EDT Office Visit [facility] [address] [place] [address] Angel Rebolledo MD Primary hypertension (Primary Dx); Alcohol use 03/29/2025 Orders Only [facility] [address] [place] [address] Kathleen Bustamante MD 03/29/2025 Travel 03/29/[address] [address] Kathleen Bustamante MD Nurse Triage from Last 3 Months Immunizations Immunization Administration Dates Next Due Tdap 03/03/2019 Social [...] Mass Index 33.86 06/15/2025 9:53 AM EDT Plan of Treatment Health Maintenance Due Date Last Done Comments CT Colonography 1975 FIT DNA/Cologuard 1975 FIT 1975 FOBT 1975 HIV Screening 1975 Sigmoidoscopy 1975 Family Planning (PISQ) 1990 Hepatitis C Screening 1993 Hepatitis B Vaccines (1 of 3 - 19+ 3-dose series) 1994 COVID-19 Vaccine (2023-2 5 season) 2025 Influenza Vaccine (#1) 2025 Zoster Vaccines (1 of 2) 2025 Alcohol/Substance Use Screening 08/30/2025 08/30/2024 Dental Oral Exam 10/08/2025 04/06/2025 Dental Prophylaxis 10/23/2025 04/22/2025 SDOH Screening 11/02/2025 11/02/2024 Dental X-Ray: Bitewings 04/07/2026 04/06/2025 Depression Screening 06/15/2026 06/15/2025, 06/15/2025 Disability Screening 06/15/2026 06/15/2025 Tobacco Screening 06/15/2026 06/15/2025 Dental X-Ray: Full Mouth 04/07/2028 04/06/2025 DTaP/Tdap/Td Vaccines (2 - T d or [...] Years) and At-Risk Patients (6 to 49) Years Aged Out No longer eligible b ased on patient's age to complete this topic RSV under 20 months Aged Out No longe r eligible based on patient's age to complete this topic Rotavirus Vaccines Aged Out No longer eligible based on patient's age to complete this topic Procedures Procedure Name Priority Date/Time Associated Diagnosis Comments ORAL HYGIENE INSTRUCTIONS Routine 04/22/2025 10:30 AM EDT PROPHYLAXIS - ADULT Routine 04/22/2025 1 0:30 AM EDT CASE PRESENTATION, DETAILED AND EXTENSIVE TREATMENT PLANNING Routine 04/22/2025 10:30 AM EDT 31 B RESIN-BASED COMPOSITE - 1 SURF, POSTERIOR Routine 04/22/2025 10:30 AM EDT COMPREHENSIVE ORAL EVALUATION - NEW OR ESTABLISHED PATIENT Routine 04/06/2025 8:00 AM EDT INTRAORAL - COMPLETE SERIES OF RADIOGRAPHIC IMAGES Routine 04/06/2025 8:00 AM EDT CASE PRESENTATION, DETAILED AND EXTENSIVE TREATMENT PLANNING Routine 04/06/2025 8:00 AM EDT URINALYSIS, COMPLETE, WITH REFLEX TO CULTURE Routine 03/29/2025 3:25 PM EDT BASIC METABOLIC PANEL Routine 03/29/2025 3:18 PM EDT Primary hypertension PSA, TOTAL WITH REFLEX TO PSA, FREE Routine 03/29/2025 3:18 PM EDT Lower urinary tract symptoms (LUTS) LIPID PANEL, STANDARD Routine 11/02/2024 4:26 PM EDT Primary hypertension from Last 3 Months or Most Recently Relevant to Health Maintenance Results * (ABNORMAL) Urinalysis, Complete, with Reflex to Culture (03/29/2025 3:25 PM EDT) Color Urine Other(A) [facility] Appearance Urine Clear [facility] PH 7.0 5.0 - 9.0 [facility] Glucose Urine UA Negative Negative mg/dL [facility] Urine Blood Small (1+)(A) Negative [facility] Specific [place] - Urine 1.015 1.005 - 1.025 [facility] Urine Protein Negative Neg-Trace mg/dL [facility] Urine Ketones Trace Negative mg/dL [facility] Nitrite Urine See Note Negative [facility] Comment:Urine pigment obscur ed dipstick results. Leukocyte Esterase Urine Negative Negative [facility] RBC Urine 11-20(A) 0 - 2 /HPF [facility] Urine WBC 0-5 0 - 5 /HPF [facility] Urine Squamous Epithelial Cell 0-2 0 - 2 /HPF [facility] Urine Bacteria None Seen None Seen [facility] Hyaline Casts, Urine 0-2 0 - 2 /LPF [facility] 03/29/2025 3:25 PM EDT 03/29/2025 6:00 PM EDT Narrative [facility] - 03/29/2025 6:29 PM EDT [id number], Clean Catch us Kathleen Bustamante MD LAB URINE ORDERABLES Final Re sult [facility] [address] [place] [address] [phone] * PSA, Total With Reflex to PSA, Free (03/29/2025 3:18 PM EDT) PSA,Total (Free>4and<10) 1.07 0.00 - 4.00 ng/mL [facility] Comment:A Free PSA was not p erformed: The percentage of Free PSA can be used to enhance the differentiation of prostate cancer from benign prostatic disease in subjects whose PSA levels are between 4.0 and 10.0 ng/mL. For subjects whose PSA levels are below 4.0 or above 10.0 ng/mL, the risk of prostate cancer is determined on the basis of the PSA alone. Therefore the % Free PSA is recommended only for those subjects whose PSA levels are between 4.0 and 10.0 ng/mL.PSA methodology: Panda Alinity i ChemiluminescentMicroparticle Immunoassay (CMIA) 03/29/2025 3:18 PM EDT 03/29/2025 6:02 PM EDT us Kathleen Bustamante MD LAB BLOOD ORDERABLES Final Re sult [facility] [address] [place] [address] [phone] * Basic Metabolic Panel (03/29/2025 3:18 PM EDT) Sodium 139 135 - 145 mmol/L [facility] Potassium 4.0 3.3 - 5.1 mmol/L [facility] Chloride 104 96 - 108 mmol/L [facility] Carbon Dioxide 26 22 - 29 mmol/L [facility] Anion Gap 13 12 - 20 [facility] Urea Nitrogen (BUN) 14 9 - 16 mg/dL [facility] Creatinine, Serum 1.05 0.5 - 1.4 mg/dL [facility] Estimated Glomerular Filt Rate >60 [facility] Comment:Chronic Kidney Disea se: Estimated GFR < 60 mL/min/1.99h3Fxmhsn Kidney Disease: Estimated GFR < 15 mL/min/1.73m2 Glucose 98 60 - 115 mg/dL [facility] Calcium 9.0 8.4 - 10.2 mg/dL [facility] Blood Venous blood specimen / Unknown 03/29/2025 3:18 PM EDT 03/29/2025 6:02 PM EDT us Angel Rebolledo MD LAB BLOOD ORDERABLES Final Result [facility] [address] [place] [address] [phone] * (ABNORMAL) Lipid Panel, Standard (11/02/2024 4:26 PM EDT) Triglycerides 161(H) <150 mg/dL [facility] Comment:Desirable Triglyceri de: less than 150 mg/dLBorderline High Triglyceride 150-199 mg/dLHigh Triglyceride: 200-499 mg/dLVery High Triglyceride: greater than or equal to 5OO mg/dL Cholesterol 267(H) <200 mg/dL [facility] Comment:Desirable Cholestero l: less than 200 mg/dLBorderline High Cholesterol: 200-239 mg/dLHigh Cholesterol: greater than 239 mg/dL LDL Cholesterol Calculated 180(H) <100 mg/dL [facility] Comment:Desirable LDL: less than 100 mg/dLNear Optimal/Above Optimal LDL: 110- 129 mg/dLBorderline High LDL: 130-159 mg/dLHigh LDL: 160-189 mg/dLVery High LDL: greater than or equal to 190 mg/dL HDL Cholesterol 55 >40 mg/dL [facility] Comment:Desirable HDL: great er than 40 mg/dL Note: This HDL assay may give artificially low results in patients with liver disease. Blood Venous blood specimen / Unknown 11/02/2024 4:26 PM EDT 11/02/2024 6:30 PM EDT us Kathleen Bustamante MD LAB BLOOD ORDERABLES Final Re sult [facility] [address] [place] [address] [phone] from Last 3 Months or Most Recently Relevant to Health Maintenance Insurance [address] [address] DENTAL - HSN PARTIAL (MEDICAID) Care Teams Raschel Knitting Machine Operator Relationship Specialty Start Date End Date Kathleen Bustamante MD [address] [place] [address] PCP - General Family Medicine 05/22/23
--- OUTSIDE RECORDS SUMMARY | 2025-06-16 12:25 | XMS_ITS | Encounter Summary ---
Author Organization [employer] Address [address] [place] [address] [place] [address] Care Team Providers Care Training Technician Name Role Phone Kathleen Bustamante MD Primary Care Provider [phone] Reason for Referral * Consultation (Routine) - Pending Review Specialty Diagnoses / Procedures Referred By Steve manriquez Referred To Contact Urology Diagnoses Other microscopic hematuria Angel Rebolledo MD [address] [place] [address] Phone: tel: fax: [facility] [address] [place] [address] [address] [place] [address] Phone: tel: fax: Referral ID Status Reason Start Date Expiration Date Visits Requested Visits Authorized [id number] Pending Review Specialty Services Required 03/30/2025 03/30/2026 1 1 Encounter Details Date Type Department Care Team (Late st Contact Info) Description 03/30/2025 Orders Only [facility] [address] [place] [address] Angel Rebolledo MD [address] [place] [address] Other microscopic hematuria (Primary Dx) Social History Tobacco Use [...] of this encounter Plan of Treatment Scheduled Referrals Name Type Priority Associated Diagnoses Orde r Schedule Referral to Urology Outpatient Referral Routine Other microscopic hematuria Expected: 03/30/2025 (Approximate), Expires: 03/30/2026 documented as of this encounter Visit Diagnoses Diagnosis Other microscopic hematuria- Primary documented in this encounter Additional Health Concerns Assessment Noted Time PHQ-9 Depression Total Score: 12 025 2:39 PM EDT documented as of this encounter Care Teams Training Technician Relationship Specialty Start Date End Date Kathleen Bustamante MD [address] [place] [address] PCP - General Family Medicine 05/22/23 documented as of this encounter
== END 2025-06-16 11:19 | disposition home or self-care (01) ==
PROVIDERS: PCP Family Medicine; Visit Provider Urology
DX: R31.29 Other microscopic hematuria (principal)
CPT/HCPCS: 99203

== ENCOUNTER → 2025-06-16 10:23 | Outpatient (BNVA) | payer OTHER, SELFPAY | PROVIDERS: PCP Family Medicine; Visit Provider Urology | DX: R31.29 Other microscopic hematuria (principal) | CPT/HCPCS: 99202 ==